=== PATIENT | female | born 1955 | race Caucasian/White ===

== ENCOUNTER → 2016-10-26 | Outpatient (CLI) | payer BC ==
[~2016-10-26] MED LIST: ASPI81TA28 PO; ATEN-173 PO; CHOLTAB3 PO; ESTR0.05 TD; RANI300T2 PO
[2016-10-26 13:50] LABS: BASO % 0.3 %; BASO ABS # 0.02 K/uL (0-0.2); COMPLETE YES; EOS % 0.8 %; HEMATOCRIT 40.9 % (37-47); IG% 0.2 %; LYMPH % 37.2 %; LYMPH ABS # 2.25 K/uL (1.2-3.4); MEAN CELL VOLUME 91.5 fL (80-100); MEAN CORPUSCULAR HEMOGLOBIN 30.4 pg (25-34); MEAN CORPUSCULAR HGB CONC 33.3 g/dl (32-36); MEAN PLATELET VOLUME 9.2 fL (7.4-10.4); MONO % 8.6 %; NEUT % 52.9 %; PLATELET COUNT 200 K/uL (130-400); RED BLOOD COUNT 4.47 M/uL (4.2-5.4); WHITE BLOOD COUNT 6.05 K/uL (4.8-10.8)
[2016-10-26 14:22] LABS: BLOOD UREA NITROGEN 10 mg/dl (7-18); BUN/CREATININE RATIO 14.4 (10-20); CARBON DIOXIDE 31 mmol/L (21-32); CHLORIDE 106 mmol/L (98-107); CREATININE 0.67 mg/dl (0.60-1.20); GLUCOSE 78 mg/dl (70-99); POTASSIUM 4.2 mmol/L (3.5-5.1); SODIUM 143 mmol/L (136-145)
== END | disposition home or self-care (01) ==
LOC: C.LABBC 11:09
PROVIDERS: ATTEND Family Medicine
DX: E55.9 Vitamin D deficiency, unspecified (principal); E53.9 Vitamin B deficiency, unspecified; K50.10 Crohn's disease of large intestine without complications; Z11.59 Encounter for screening for other viral diseases

== ENCOUNTER → 2016-11-08 | Outpatient (CLI) | payer BC ==
--- NOTE | 2016-11-09 12:25 | MAMMOGRAPHY REPORT ---
UNILATERAL LEFT DIGITAL DIAGNOSTIC MAMMOGRAM TOMOSYNTHESIS WITH CAD: 11/08/2016 CLINICAL HISTORY: Short interval follow-up diagnostic mammogram and possible ultrasound in the left breast for any facing asymmetry in the central breast. The patient is status post benign ultrasound -guided core biopsy in the left 9:00 breast and stereotactic biopsy of clustered microcalcifications in the upper outer quadrant of the right breast. The patient can feel a small dermal/subdermal 1 m m mass in the area of prior biopsy of the right breast, and reported it at this time. TECHNIQUE: Breast tomosynthesis in addition to standard 2D mammography was performed. Current study was also evaluated with a Computer Aided Detection (CAD) system. COMPARISON: Comparison is made to exams dated: 05/05/2016 ultrasound biopsy, 05/05/2016 mammogram, stereotactic biopsy, and 04/19/2016 mammogram - [facility]. BREAST COMPOSITION: The tissue of the left breast is heterogeneously dense, which may obscure small masses. FINDINGS: The asymmetry in the central left breast is no longer seen, confirming benignity. There i s a stable ribbon shaped metallic biopsy marker in the lower inner quadrant of the left breast denot ing the site of prior benign ultrasound-guided core biopsy. There are stable benign-appearing calci fications throughout the left breast. No new suspicious mass, focal area of architectural distortio n or new suspicious microcalcifications are seen. Focal targeted ultrasound was performed along a superficial 1 mm mass correlating to a slightly eryt hematous scar in the upper outer quadrant of the right breast which represents the incision from pre vious stereotactic biopsy. The patient pointed out this area during diagnostic workup and was wonde ring if it could represent the biopsy marker clip placed after stereotactic biopsy. Review of the postprocedure mammograms from 05/05/2016 demonstrates the biopsy marker clip to be loc ated at least 4.8 cm deep to the skin surface and it is doubtful that this represents the biopsy mar ker clip. No ultrasound images were saved but there is no evidence of a biopsy marker clip in the a montserrat of subdermal palpable concern. This area has the appearance of scar tissue in the dermis at the site of the skin incision. IMPRESSION: ACR BI-RADS CATEGORY 2: BENIGN The asymmetry in the central left breast is no longer identified. This confirms benignity. There is no mammographic evidence of malignancy within the left breast. Return to annual mammogram screening schedule is recommended. The patient has been verbally notified of the results. Approximately 10% of breast cancers are not detected with mammography. A negative mammographic repor t should not delay biopsy if a clinically suggestive mass is present. Rowan Merrill M.D. ay/:11/08/2016 14:54:11 Endband Cutter Hand: Chiqui GIRARD(Anders)([place]), [facility] letter sent: Normal 1/2 BI-RADS Code: ACR BI-RADS Category 2: Benign
== END | disposition home or self-care (01) ==
LOC: C.MAMM 14:08
PROVIDERS: ATTEND Obstetrics & Gynecology
DX: R92.2 Inconclusive mammogram (principal); N64.89 Other specified disorders of breast

== ENCOUNTER → 2017-05-09 | Outpatient (CLI) | payer BC ==
--- NOTE | 2017-05-11 07:55 | MAMMOGRAPHY REPORT ---
BILATERAL DIGITAL SCREENING MAMMOGRAM TOMOSYNTHESIS WITH CAD: 05/09/2017 CLINICAL HISTORY: Routine screening examination. TECHNIQUE: Breast tomosynthesis in addition to standard 2D mammography was performed. Current study was also evaluated with a Computer Aided Detection (CAD) system. COMPARISON: Comparison is made to exams dated: 11/08/2016 mammogram, 05/05/2016 ultrasound biopsy, 04/13 mammogram, 05/05/2016 stereotactic biopsy, and 04/12/2016 mammogram - [facility] BREAST COMPOSITION: The tissue of both breasts is heterogeneously dense, which may obscure small mas ses. FINDINGS: There are stable biopsy marker clips in each breast. Stable grouped benign-appearing micro calcifications in both breasts. No new suspicious mass, architectural distortion or cluster of micro calcifications is seen. IMPRESSION: ACR BI-RADS CATEGORY 1: NEGATIVE There is no mammographic evidence of malignancy. A 1 year screening mammogram is recommended. The pa tient will receive written notification of the results. Approximately 10% of breast cancers are not detected with mammography. A negative mammographic report should not delay biopsy if a clinically suggestive mass is present. Rowan Merrill M.D. ay/:05/10/2017 16:53:39 Block Layer: Chiqui GIRARD(Anders)([place]), [facility] letter sent: Normal 1/2 BI-RADS Code: ACR BI-RADS Category 1: Negative
== END | disposition home or self-care (01) ==
LOC: C.MAMM 09:50
PROVIDERS: ATTEND Obstetrics & Gynecology
DX: Z12.31 Encounter for screening mammogram for malignant neoplasm of breast (principal)

== ENCOUNTER → 2017-09-06 | Outpatient (CLI) | payer BC | END | disposition home or self-care (01) | LOC: C.LAB 11:04 | PROVIDERS: ATTEND Internal Medicine Cardiovascular Disease | DX: E78.5 Hyperlipidemia, unspecified (principal) ==

== ENCOUNTER → 2017-09-27 | Outpatient (CLI) | payer BC ==
[~2017-09-27] MED LIST changes: +REGADENOSON 0.4 MG/5 ML SYR ONE
--- NOTE | 2017-09-29 08:16 | MYOCARDIAL PERFUSION SCAN ---
REQUESTING PHYSICIAN: Chidi Sotelo MD. INDICATION: Chest pain. ONE-DAY NUCLEAR MEDICINE TECHNETIUM-99M CARDIOLITE MYOCARDIAL PERFUSION SCAN EKG: Baseline EKG shows normal sinus rhythm at a ventricular rate of 69 with a left bundle branch block. Stress EKG, heart rate rohan from 68-131 with Lexiscan representing 83% of maximum predicted heart rate. Blood pressure rohan from 139/69-159/68. There was some Lexiscan-induced chest pain. TECHNIQUE: For the stress portion of the study 30.3 mCi of technetium-99m Cardiolite IV was injected at 1309 on 09/27/2017. Thirty minutes following the injection, imaging of the heart was performed in multiple projections. For the rest portion of the study, 10.9 mCi of technetium-99m Cardiolite IV was injected at 11:35. One hour following the injection, imaging of the heart was performed in the same projections. FINDINGS: The rotating raw images were reviewed in detail. There was minimal gut/liver uptake impacting the inferior imaging border of the heart. There is no significant diaphragmatic attenuation or breast shadow. There was no significant extra cardiac pathologic uptake. The short axis, vertical long axis, horizontal long axis images were reviewed in detail. There was a small to moderate in severity fixed perfusion defect involving the apex and apical septum. The study most consistent with patient's baseline left bundle branch block. There was no significant reversibility. LV size was normal with an end-diastolic volume of 65. EF was calculated at 72%. There was some mild hypokinesis in the apical septum. IMPRESSION: 1. Negative myocardial perfusion scan for significant Lexiscan-induced ischemia. 2. Small fixed perfusion defect involving the apex, apical septum most consistent with left bundle branch block, much less likely would be distal infarct. 3. Normal left ventricle size with a calculated ejection fraction of 72% and mild apical septal hypokinesis most consistent with conduction abnormality. 4. Nondiagnostic Lexiscan EKG due to baseline left bundle branch block, inability to reach target heart rate.
== END | disposition home or self-care (01) ==
LOC: C.NUCL 11:08
PROVIDERS: ATTEND Internal Medicine Cardiovascular Disease
DX: R07.9 Chest pain, unspecified (principal)

== ENCOUNTER → 2017-10-26 | Outpatient (CLI) | payer BC ==
[~2017-10-26] MED LIST changes: -REGADENOSON 0.4 MG/5 ML SYR ONE
[2017-10-26 13:19] LABS: BASO % 0.1 %; BASO ABS # 0.01 K/uL (0-0.2); EOS % 0.9 %; EOS ABS # 0.06 K/uL (0-0.5); HEMATOCRIT 41.8 % (37-47); HEMOGLOBIN 14.3 g/dL (12.0-16.0); IG# 0.02 K/uL (0.00-0.02); LYMPH % 36.5 %; LYMPH ABS # 2.44 K/uL (1.2-3.4); MEAN CELL VOLUME 91.9 fL (80-100); MEAN CORPUSCULAR HEMOGLOBIN 31.4 pg (25-34); MEAN CORPUSCULAR HGB CONC 34.2 g/dl (32-36); MEAN PLATELET VOLUME 9.2 fL (7.4-10.4); MONO % 6.7 %; MONO ABS # 0.45 K/uL (0.11-0.59); NEUT % 55.5 %; PLATELET COUNT 193 K/uL (130-400); RED CELL DISTRIBUTION WIDTH CV 12.9 % (11.5-14.5); RED CELL DISTRIBUTION WIDTH SD 43.3 fL (36.4-46.3); WHITE BLOOD COUNT 6.68 K/uL (4.8-10.8)
[2017-10-26 13:35] LABS: BLOOD UREA NITROGEN 10 mg/dl (7-18); CALCIUM 8.7 mg/dl (8.5-10.1); CARBON DIOXIDE 28 mmol/L (21-32); CREATININE 0.71 mg/dl (0.60-1.20); GLUCOSE 83 mg/dl (70-99); POTASSIUM 3.9 mmol/L (3.5-5.1); SODIUM 138 mmol/L (136-145)
== END ==
LOC: C.LABBC 11:42
PROVIDERS: ATTEND Nurse Practitioner Adult Health
DX: E55.9 Vitamin D deficiency, unspecified (principal); E53.8 Deficiency of other specified B group vitamins; I10 Essential (primary) hypertension; K50.10 Crohn's disease of large intestine without complications

== ENCOUNTER → 2017-12-01 | Outpatient (CLI) | payer BC ==
--- NOTE | 2017-12-01 15:10 | MAMMOGRAPHY REPORT ---
UNILATERAL RIGHT DIGITAL DIAGNOSTIC MAMMOGRAM TOMOSYNTHESIS WITH CAD AND TARGETED RIGHT ULTRASOUND: CLINICAL HISTORY: The patient reports right lateral breast tenderness for approximately 6 weeks. She also had a scaly area on her right areola which crusted over and is now nearly completely resolved. She denies any palpable lumps or other complaints. TECHNIQUE: Breast tomosynthesis in addition to standard 2D mammography was performed. Current study was also evaluated with a Computer Aided Detection (CAD) system. Right CC and MLO 2D and tomosynthes is images were obtained. COMPARISON: Comparison is made to exams dated: 05/09/2017 mammogram, 11/08/2016 mammogram, 05/05/2016 u ltrasound biopsy, 05/05/2016 mammogram, 05/05/2016 stereotactic biopsy, and 04/19/2016 mammogram - [facility]. BREAST COMPOSITION: The tissue of the right breast is heterogeneously dense, which may obscure small masses. FINDINGS: A square marker butts the site of pointed out by the patient in the right upper outer quadr ant. There are no suspicious masses, calcifications, or areas of architectural distortion noted in t he right breast. There has been no significant interval change compared to prior exams. A biopsy cl ip is again noted within the right upper outer quadrant. Benign-appearing scattered right breast susan cifications are stable. Targeted ultrasound was performed of the area of pain pointed out by the patient, in the right 8 to 1 0:00 breast laterally. No suspicious masses or other suspicious sonographic abnormalities are eviden t. Incidentally noted during the exam were a few scattered small subcentimeter benign cysts. Target ed ultrasound was also performed of the site of the prior lesion on the right areola at approximately 9:00. No suspicious masses or other suspicious sonographic abnormalities are seen in this region on ultrasound. IMPRESSION: ACR BI-RADS CATEGORY 2: BENIGN, TARGETED ULTRASOUND ACR BI-RADS CATEGORY 2: BENIGN No suspicious mammographic or sonographic abnormality to explain right lateral breast pain. No suspi cious abnormality was seen at the site of the right areolar lesion which has nearly completely resolv ed clinically. There is no mammographic or targeted sonographic evidence of malignancy. Recommend c linical follow-up for right breast pain and for the areola lesion, and recommend routine bilateral sc reening mammograms which are due April 2018. The patient has been verbally notified of the results. Approximately 10% of breast cancers are not detected with mammography. A negative mammographic report should not delay biopsy if a clinically suggestive mass is present. Anette Avina M.D. ah/:12/01/2017 12:06:27 Housekeeper: Chiqui Kaiser [facility] letter sent: Normal 1/2 BI-RADS Code: ACR BI-RADS Category 2: Benign Ultrasound BI-RADS: ACR BI-RADS Category 2: Benign
== END | disposition home or self-care (01) ==
LOC: C.MAMM 10:21
PROVIDERS: ATTEND Nurse Practitioner Adult Health
DX: N64.4 Mastodynia (principal)

== ENCOUNTER 2024-07-21 06:56 | Inpatient (IN) ==
--- OUTSIDE RECORDS SUMMARY | 2024-07-21 07:01 | External Medical Summary | Summary of Care ---
Author Name Unknown Organization [facility] Address [address] [place] [address] Phone [phone] Care Team Providers Care Frankfurter Inspector Name Role Phone Luis M Lam DO Primary Care Provider [phone] Reason for Visit * Reason Onset Date Comments Appointment 07/16/2024 Encounter Details Date Type Department Care Team (Late st Contact Info) Description 07/16/2024 Telephone Rad[address] [address] Rohini Hancock, RT (R) Appointment Allergies Active Allergy Reactions Criticality Noted Date Comments Erythromycin 10/22/2021 Other reaction(s): GI Upset Morphine 10/22/2021 Other reaction(s): Vomiting documented as of this encounter (statuses as of 07/16/2024) Medications Medication Sig Dispensed Refills Start Date End Date Status Ezetimibe 10 MG Oral Tablet (Zetia) 10/15/2021 Activ e Atenolol 25 MG Oral Tablet (Tenormin) 08/16/2021 Active Vivelle-Dot 0.05 MG/24HR Transdermal Patch Twice Weekly APPLY 1 PATCH TRANSDERMALLY TWICE WEEKLY 09/29/2021 Active Vitamin D (Cholecalciferol) 10 MCG (400 UNIT) Oral Tablet Chewable Take by mouth 400 Units in the morning. Active Aspirin 81 MG Oral Tablet Delayed Release Take by mouth 81 mg in the morning. Active documented as of this encounter (statuses as of 07/16/2024) Social History Tobacco Use Types Packs/Day Years Used Date Smoking Tobacco: Never Smokeless Tobacco: Never Utilities Answer Date Recorded Do you have trouble paying y our heating, water, or electric bill? (Adult - for ages 18 years and over) Not on file 02/28/2024 Is your family able to pay t he heat, water, or electric bill? (Household - for ages 0-17 years) Not on file 02/28/2024 Does your family have access to good internet? (Household - for ages 0-17 years) Not on file 02/28/2024 Social Connections Answer Date Recorded How often do you feel lonely or isolated from those around you? (Adult - for ages 18 years and over) Not on file 02/28/2024 Sex and Gender Information Value Date Recorded Sex Assigned at Not on file Gender Identity Not on file Sexual Orientation Not on file Job Start Date Occupation Industry Not on file Not on file Not on file documented as of this encounter Miscellaneous Notes * Telephone Encounter - Rohini Hancock RT (R) - 07/16/2024 9:44 AM EST Name: Maryam Haro Do you have any of the following: Pacemaker, stents, heart valves, aneurysm clips? No Have you ever worked with metal or have you ever gotten metal in your eyes? No Have you had a colonoscopy in the last 30 days? No On dialysis? No Do you have any dermals or body piercing's? No or ? no Do you wear an insulin pump or diabetic monitor? no RT Jennifer (R) documented in this encounter Plan of Treatment Upcoming Encounters Date Type Department Care Team (Late st Contact Info) Description 07/20/2024 1:45 PM EST [address] [address] Health Maintenance Due Date Last Done Comments DXA Scan 1953 Lipid Panel 1953 Depression Screening 1965 Hepatitis C Screening 1971 DTap/Tdap Vaccines (1 - Tdap) 1972 Mammogram 1993 Cologuard 1998 Colonoscopy 1998 Colorectal Cancer Screening 1998 Fecal Occult Blood Test 1998 Sigmoidoscopy 1998 Zoster Vaccines (1 of 2) 2003 Pneumococcal Vaccine: 65+ Years (1 of 1 - PCV) 2018 COVID-19 Vaccine (4 - 2023-2 5 season) 2024 07/30/2021, 11/21/2020, 10/24/2020 Influenza Vaccine (FLU shot) (#1) 2024 HPV (Gardasil) Vaccine Aged Out No lo nger eligible based on patient's age to complete this topic Hepatitis B Vaccine Aged Out No longe r eligible based on patient's age to complete this topic MENINGOCOCCAL (MENACTRA/MENVEO) Aged Out No longer eligible b ased on patient's age to complete this topic documented as of this encounter Medical Devices Not on filedocumented as of this encounter Care Teams Frankfurter Inspector Relationship Specialty Start Date End Date uLis M Lam DO [address] [place] [address] PCP - General Family Medicine 09/13/21 documented as of this encounter
[2024-07-21] MEDS: SODIUM CHLORIDE 0.9% 1,000 ML IV ONE (07:24)
[2024-07-21] MEDS: ONDANSETRON INJ 2 MG/ML 2 ML VIAL IV STA (07:24)
[2024-07-21] MEDS: FAMOTIDINE 20MG IV PUSH 20 MG/5 ML SYR IV STA (07:25)
[2024-07-21 07:58] LABS: Basophils # (auto) 0.03 K/uL (0.00-0.20); Basophils % (auto) 0.2 %; Hematocrit (blood only) 44.5 % (37.0-47.0); Hemoglobin 14.9 g/dl (12.0-16.0); Immature Granulocytes # (auto) 0.04 K/uL (0.01-0.20); Immature Granulocytes % (auto) 0.3 %; Lymphocytes # (auto) 3.05 K/uL (1.20-3.40); Lymphocytes % (auto) 22.2 %; Mean Corpuscular Hemoglobin 30.9 pg (25.0-34.0); Mean Corpuscular Hgb Conc 33.5 g/dL (32.0-36.0); Mean Corpuscular Volume 92.3 fL (80.0-100.0); Mean Platelet Volume 8.7 fL (9.4-12.4); Monocytes # (auto) 0.66 K/uL (0.11-0.59); Monocytes % (auto) 4.8 %; Neutrophils # (auto) 9.95 K/uL (1.40-6.50); Neutrophils % (auto) 72.5 %; Platelet Count 200 K/uL (130-400); RDW Coefficient of Variation 13.7 % (11.5-14.5); RDW Standard Deviation 46.3 fL (36.4-46.3); Red Blood Count 4.82 M/uL (4.20-5.40); White Blood Count 13.73 K/ul (4.8-10.8)
--- NOTE | 2024-07-21 08:02 | XRay Report ---
XR chest 1V portable CLINICAL HISTORY: Chest pain, nonspecific COMPARISON STUDY: Chest radiograph September 02, 2023. FINDINGS: Lung volumes are at the lower limits of normal. Lungs are clear. There is no pneumothorax o r pleural effusion. Cardiac size is normal. Mediastinal contours are normal. There is pulmonary vascu lar congestion without overt pulmonary edema. IMPRESSION: 1. No consolidation to suggest pneumonia. 2. Pulmonary vascular congestion. ACT 112: Negative or not required by law. Electronically signed by: Jose Sun M.D. 07/21/2024 8:01 AM
--- NOTE | 2024-07-21 08:09 | Emergency Department Note ---
Impression & Plan Crohn's disease, Intractable nausea and vomiting, Abnormal computed tomography of abdomen and pelvis ED Provider Note NAME: ASIA CONNORS AGE: 69 SEX: F : 1955 ARRIVES VIA: Walk-In INFORMANT: Patient ED PROVIDER(S): Jose Barba MD CHIEF COMPLAINT: Abdominal pain, nausea, vomiting, diarrhea. PLAN: Disposition: Admit MEDICAL DECISION MAKING: The patient is a 69-year-old woman with past medical history of Crohn's disease, IBS, small bowel bacterial overgrowth, GERD, chronic constipation, hypertension, cardiomyopathy, hyperlipidemia, B12 deficiency, cervical radiculopathy who presents to the emergency department via walk-in for evaluation of persistent nausea, vomiting and diarrhea began yesterday in the setting of her report of having outpatient MRI of her abdomen with oral contrast yesterday. The patient attributes her symptoms possibly related to the oral contrast that she took as well as a salad and she later. She denies any fevers, chills, cough, congestion, urinary symptoms. Patient was seen in this emergency department on 06/15 for flare of her chronic symptoms of abdominal pain, bloating and nausea and had CT imaging that demonstrated calcified intraluminal contents with mucosal inflammation currently at the patient's ileocecal valve anastomosis which may reflect stenosis. Patient was treated with a prednisone taper at that time and had subsequent improvement in symptoms. She has since followed with her [facility] GI specialist and colorectal surgery follow-up was arranged and further management to be informed by the outpatient MRI the patient had yesterday. On evaluation the patient is fatigued appearing but no distress, afebrile with blood pressure 150s/80s and heart in the 90s and vital signs otherwise stable. She appears clinically dry. She has right-sided abdominal discomfort without discrete tenderness. No guarding or rebound. EKG demonstrates normal sinus rhythm with left bundle branch block, similar to prior, no Sgarbossa criteria. WBC 13.7 K with neutrophilia but no left shift, nonspecific. H/H and platelets within limits. ESR is within normal limits. CRP is marginally above upper limit of normal at 0.65. Chemistry without metabolic acidosis. Magnesium 1.6. LFTs unremarkable. High-sensitivity troponin 5.9, within normal limits. Lipase is not elevated. Stool studies were performed and were negative on BioFire PCR and C. difficile PCR. CT of the abdomen pelvis was performed and demonstrates similar but progressed findings compared to last month where the patient is status post ileocecectomy. Where marked mucosal thickening and moderate inflammatory changes centered on the neoterminal ileum has progressed. There is persistence of a calcified intraluminal contents and stable dilatation of the neoterminal ileum which favors progression of active inflammatory bowel disease with extensive inflammation. Mucosal edema and thickening suggests partial small bowel obstruction though the patient reports having moved her bowels. There is no abscess or extraluminal gas. Patient was treated with IV fluid hydration, IV famotidine, Zofran, IV APAP and had some initial improvement but then worsening again. Patient was given IV Solu-Medrol as well as Phenergan and dicyclomine however upon p.o. trial the patient was still unable to tolerate oral intake without feeling flare of pain, cramping and nausea. Given persistence of symptoms patient does agree with plan for admission for further management. Case was discussed with GI on-call, Dr. Breen. Appreciate consultation and recommendations. Agrees with admission to our facility if the patient cannot go home based on her clinical symptoms. The patient does have outpatient follow-up and progress with colorectal surgery however would not be a surgical candidate at this time given suspected active flare. Agrees with IV steroids. He will be available for inpatient team consultation. Case was discussed with Dr. Ramsey, [facility] [place] hospitalist, who will evaluate the patient for admission. Further management per admitting team. Triage Nursing notes reviewed and agree them. Prior/external medical records reviewed Vital Signs: reviewed Differential diagnosis: Gastroenteritis, food borne illness, infections, appendicitis, diverticulitis, inflammatory bowel disease, obstruction, GI bleed, biliary pathology, volvulus, as well as other pathologies. ER treatment provided: See below. Diagnostics interpreted by me: ECG: Normal sinus rhythm, 93 bpm, no ectopy, left bundle branch block, no Sgarbossa criteria, similar to prior. Cardiac Monitoring: An order for continuous cardiac monitoring was placed and demonstrated Normal sinus rhythm, 93 bpm, no ectopy. Laboratory studies: See below Imaging studies: See below Consultation(s): Dr. Breen, GI on-call Dr. Ramsey [facility] [place] hospitalist, HPI: The patient is a 69-year-old woman with past medical history of Crohn's disease, IBS, small bowel bacterial overgrowth, GERD, chronic constipation, hypertension, cardiomyopathy, hyperlipidemia, B12 deficiency, cervical radiculopathy who presents to the emergency department via walk-in for evaluation of persistent nausea, vomiting and diarrhea began yesterday in the setting of her report of having outpatient MRI of her abdomen with oral contrast yesterday. The patient attributes her symptoms possibly related to the oral contrast that she took as well as a salad and she later. She denies any fevers, chills, cough, congestion, urinary symptoms. Patient was seen in this emergency department on 06/15 for flare of her chronic symptoms of abdominal pain, bloating and nausea and had CT imaging that demonstrated calcified intraluminal contents with mucosal inflammation currently at the patient's ileocecal valve anastomosis which may reflect stenosis. Patient was treated with a prednisone taper at that time and had subsequent improvement in symptoms. She has since followed with her [facility] GI specialist and colorectal surgery follow-up was arranged and further management to be informed by the outpatient MRI the patient had yesterday. ROS: See above HPI for pertinent positives & negatives. A total of 10 systems reviewed and were otherwise negative. VITALS:See Below PHYSICAL EXAMINATION: GENERAL: Awake, alert, fatigued-appearing, in no distress HENT: Normocephalic, atraumatic. Oropharynx with dry mucous membranes and otherwise unremarkable. EYES: Normal conjunctiva. Sclera non-icteric. NECK: Supple. No nuchal rigidity. FROM. No JVD. RESPIRATORY: Clear to auscultation. CARDIAC: Regular rate, normal rhythm. Extremities warm and well perfused. Pulses equal. ABDOMEN: Soft, non-distended. Right-sided abdominal discomfort without discrete tenderness. There is no guarding or rebound. MUSCULOSKELETAL: Chest examination reveals no tenderness. The back is symmetrical on inspection without obvious abnormality. There is no CVA tenderness to palpation. No joint edema. LOWER EXTREMITIES: Calves are equal size bilaterally and non-tender. No edema. No discoloration. NEURO: Normal sensorium. No sensory or motor deficits noted. SKIN: No rash or jaundice noted. Jose Barba MD Past Med/Surg History Problem List (Updated 07/21/24 @ 19:41 by Jose Barba MD) Abnormal computed tomography of abdomen and pelvis (Acute) Intractable nausea and vomiting (Acute) Cervical disc disorder at C6-C7 level with radiculopathy HTN (hypertension) (Chronic) F/u Cardiology Cardiomyopathy Transient. Normal coronaries and normal LVEF on follow up (2010). Patent Foramen Ovale. Crohn's disease (Chronic) f/u by dr. Messer Hyperlipidemia (Chronic) B12 deficiency IBS (irritable bowel syndrome) Chronic constipation Esophageal reflux (Chronic) Vitamin D deficiency (Chronic) Unable to tolerate dose > 400U/day d/t headaches. Medical History Rectocele Vaginal prolapse 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 Left bundle branch block History of varicose veins History of cataract Surgical History Status post endovenous radiofrequency ablation of saphenous vein (~2014) to right lower extremity History of esophagogastroduodenoscopy (EGD) (03/07/19) No dysplasia. Recommend f/u 2021 (d/t h/o Crohn's) History of colonoscopy (03/07/19) No colitis. Recommend f/u 2021 (d/t h/o Crohn's). Hx of breast biopsy (05/05/16) Fibroadenoid changes without evidence of DCIS or invasic carcinoma. S/P cataract surgery History of cataract surgery (Unknown) History of wisdom tooth extraction History of carpal tunnel surgery s/p right carpal tunnel release 07/26/18 History of knee surgery Bilateral Meniscus repair. History of shoulder surgery (03/01/19) Arthroscopic right RTC repair History of laminectomy History of tonsillectomy and adenoidectomy History of hysterectomy with oophorectomy History of bowel resection Family History Mother Diabetes Father Coronary heart disease Myocardial infarction Brother Coronary heart disease Myocardial infarction Stroke Aunt Breast cancer Sister Stroke Other Cancer Denies family history of Ovarian cancer Prostate cancer Crohn's disease Lung cancer Colorectal cancer Ulcerative colitis Social History Smoking Status: Never smoker Second Hand Exposure: No; Do You Dip or Chew Tobacco: No; Tobacco Cessation Education Requested by Patient: No Hx Alcohol Use: No Hx Substance Use: No Preferred Language: [place] Island[place] Communication Ability: Effective Visual Impairment: Limited Hearing Ability: Normal Gun Tester Required: No Beliefs That Will Affect Care: None marital status: Life Partner Current Living Situation: Significant Other current occupational status: retired How many Children do You have: 3 Other Information That Helps Us Care for You: No Feels Safe at Home: Yes Safety Concerns: Feels Safe At This Time Childhood Exposure to Second-Hand Smoke: No caffeine: No (very seldom ) Dental Care, Regularly: Yes Physical Activity Frequency: 1-2 Times per Week Seatbelt Use: always Sunscreen Use: Yes Assistive Devices: Cane, Contacts and Glasses Allergies Allergies Allergy/AdvReac Type Severity Reaction Status Date / Time erythromycin base AdvReac Unknown ABDOMINAL Verified 07/10/24 13:12 DISCOMFORT morphine AdvReac Unknown VOMITING Verified 07/10/24 13:12 tramadol AdvReac Severe Vomiting Uncoded 07/10/24 13:12 Home Meds Home Medications Medication Instructions Recorded Confirmed cholecalciferol (vitamin D3) 10 400 units PO DAILY 04/23/19 07/21/24 mcg (400 unit) capsule aspirin 81 mg tablet,delayed 81 mg PO .COMPLEX 06/19/19 07/21/24 release (Adult Low Dose Aspirin) cyanocobalamin (vitamin B-12) 1,000 mcg PO DAILY 05/24/23 07/21/24 1,000 mcg capsule Previous Rx's Medication Instructions Recorded atenolol 25 mg tablet See Rx Instructions .Route 06/29/23 .COMPLEX #90 tabs Vivelle-Dot 0.05 mg/24 hr 1 patch transdermal 2XWK #24 07/10/24 transdermal patch (estradiol) patches ezetimibe 10 mg tablet (Zetia) 10 mg PO DAILY #90 tabs 07/16/24 Results & Data (ED) Vital Signs Vital Signs - 24 hr 07/21/24 07:00 07/21/24 07:24 07/21/24 07:28 Temperature 36.3 C L Temperature Source Skin Pulse Rate 98 H 98 H Pulse Rate [Apical] Respiratory Rate 20 14 Respiratory Effort / Characteristics Non-Labored Spontaneous Respiratory Depth Normal Respiratory Pattern Regular Blood Pressure 154/84 H Blood Pressure [Left Arm] Blood Pressure Mean 107 Blood Pressure Mean [Left Arm] Pulse Oximetry 96 93 Oxygen Delivery Method Room Air Room Air Sepsis Recent Fever Within 48 Hours No Sepsis New/Unexplained Change in Mental Status N/A Sepsis Action Taken by Nursing No Action Required 07/21/24 07:39 07/21/24 07:42 07/21/24 07:54 Temperature Temperature Source Pulse Rate 96 H 96 H 96 H Pulse Rate [Apical] Respiratory Rate 18 22 15 Respiratory Effort / Characteristics Respiratory Depth Respiratory Pattern Blood Pressure 134/77 Blood Pressure [Left Arm] Blood Pressure Mean 96 Blood Pressure Mean [Left Arm] Pulse Oximetry 95 97 95 Oxygen Delivery Method Sepsis Recent Fever Within 48 Hours Sepsis New/Unexplained Change in Mental Status Sepsis Action Taken by Nursing 07/21/24 08:12 07/21/24 08:15 07/21/24 08:24 Temperature Temperature Source Pulse Rate 100 H 101 H 96 H Pulse Rate [Apical] Respiratory Rate 17 13 Respiratory Effort / Characteristics Respiratory Depth Respiratory Pattern Blood Pressure Blood Pressure [Left Arm] Blood Pressure Mean Blood Pressure Mean [Left Arm] Pulse Oximetry 96 95 Oxygen Delivery Method Sepsis Recent Fever Within 48 Hours Sepsis New/Unexplained Change in Mental Status Sepsis Action Taken by Nursing 07/21/24 08:30 07/21/24 08:42 07/21/24 09:00 Temperature Temperature Source Pulse Rate 98 H 100 H 98 H Pulse Rate [Apical] Respiratory Rate 14 15 15 Respiratory Effort / Characteristics Respiratory Depth Respiratory Pattern Blood Pressure 151/90 H 133/75 Blood Pressure [Left Arm] Blood Pressure Mean 110 94 Blood Pressure Mean [Left Arm] Pulse Oximetry 95 93 94 Oxygen Delivery Method Sepsis Recent Fever Within 48 Hours Sepsis New/Unexplained Change in Mental Status Sepsis Action Taken by Nursing 07/21/24 09:27 07/21/24 10:03 07/21/24 10:15 Temperature Temperature Source Pulse Rate 99 H 99 H 98 H Pulse Rate [Apical] Respiratory Rate 29 H 19 14 Respiratory Effort / Characteristics Respiratory Depth Respiratory Pattern Blood Pressure Blood Pressure [Left Arm] Blood Pressure Mean Blood Pressure Mean [Left Arm] Pulse Oximetry 94 94 94 Oxygen Delivery Method Sepsis Recent Fever Within 48 Hours Sepsis New/Unexplained Change in Mental Status Sepsis Action Taken by Nursing 07/21/24 10:21 07/21/24 10:30 07/21/24 10:54 Temperature Temperature Source Pulse Rate 97 H 103 H 102 H Pulse Rate [Apical] Respiratory Rate 14 14 21 Respiratory Effort / Characteristics Respiratory Depth Respiratory Pattern Blood Pressure 126/64 Blood Pressure [Left Arm] Blood Pressure Mean 84 Blood Pressure Mean [Left Arm] Pulse Oximetry 94 96 94 Oxygen Delivery Method Sepsis Recent Fever Within 48 Hours Sepsis New/Unexplained Change in Mental Status Sepsis Action Taken by Nursing 07/21/24 11:00 07/21/24 11:21 07/21/24 11:30 Temperature Temperature Source Pulse Rate 99 H 95 H Pulse Rate [Apical] Respiratory Rate 20 21 Respiratory Effort / Characteristics Respiratory Depth Respiratory Pattern Blood Pressure Blood Pressure [Left Arm] 122/78 Blood Pressure Mean Blood Pressure Mean [Left Arm] 92 Pulse Oximetry 95 95 Oxygen Delivery Method Sepsis Recent Fever Within 48 Hours Sepsis New/Unexplained Change in Mental Status Sepsis Action Taken by Nursing 07/21/24 11:39 07/21/24 11:48 07/21/24 11:57 Temperature Temperature Source Pulse Rate 98 H 103 H 100 H Pulse Rate [Apical] Respiratory Rate 18 19 18 Respiratory Effort / Characteristics Respiratory Depth Respiratory Pattern Blood Pressure Blood Pressure [Left Arm] Blood Pressure Mean Blood Pressure Mean [Left Arm] Pulse Oximetry 95 94 95 Oxygen Delivery Method Sepsis Recent Fever Within 48 Hours Sepsis New/Unexplained Change in Mental Status Sepsis Action Taken by Nursing 07/21/24 12:12 07/21/24 12:21 07/21/24 12:51 Temperature Temperature Source Pulse Rate 98 H 93 H 97 H Pulse Rate [Apical] Respiratory Rate 15 19 19 Respiratory Effort / Characteristics Respiratory Depth Respiratory Pattern Blood Pressure Blood Pressure [Left Arm] Blood Pressure Mean Blood Pressure Mean [Left Arm] Pulse Oximetry 96 96 95 Oxygen Delivery Method Sepsis Recent Fever Within 48 Hours Sepsis New/Unexplained Change in Mental Status Sepsis Action Taken by Nursing 07/21/24 13:00 07/21/24 13:12 07/21/24 13:27 Temperature Temperature Source Pulse Rate 98 H 97 H 100 H Pulse Rate [Apical] Respiratory Rate 16 19 20 Respiratory Effort / Characteristics Respiratory Depth Respiratory Pattern Blood Pressure 100/72 Blood Pressure [Left Arm] Blood Pressure Mean 81 Blood Pressure Mean [Left Arm] Pulse Oximetry 96 94 94 Oxygen Delivery Method Sepsis Recent Fever Within 48 Hours Sepsis New/Unexplained Change in Mental Status Sepsis Action Taken by Nursing 07/21/24 13:33 07/21/24 13:42 07/21/24 14:37 Temperature Temperature Source Pulse Rate 105 H 106 H Pulse Rate [Apical] 109 H Respiratory Rate 21 18 17 Respiratory Effort / Characteristics Respiratory Depth Respiratory Pattern Blood Pressure 110/91 Blood Pressure [Left Arm] 155/85 H Blood Pressure Mean 97 Blood Pressure Mean [Left Arm] 108 Pulse Oximetry 96 94 97 Oxygen Delivery Method Room Air Sepsis Recent Fever Within 48 Hours Sepsis New/Unexplained Change in Mental Status Sepsis Action Taken by Nursing Laboratory Data Attestation: I reviewed the patient's lab results. 07/21/24 07:35 07/21/24 07:35 Lab Results 07/21/24 07/21/24 Range/Units 07:35 09:52 WBC 13.73 H (4.8-10.8) K/ul RBC 4.82 (4.20-5.40) M/uL Hgb 14.9 (12.0-16.0) g/dl Hct 44.5 (37.0-47.0) % MCV 92.3 (80.0-100.0) fL MCH 30.9 (25.0-34.0) pg MCHC 33.5 (32.0-36.0) g/dL RDW Std Deviation 46.3 (36.4-46.3) fL RDW Coeff of Edgardo 13.7 (11.5-14.5) % Plt Count 200 (130-400) K/uL MPV 8.7 L (9.4-12.4) fL Immature Gran % (Auto) 0.3 % Neut % (Auto) 72.5 % Lymph % (Auto) 22.2 % Clay % (Auto) 4.8 % Eos % (Auto) 0.0 % Baso % (Auto) 0.2 % Neut # (Auto) 9.95 H (1.40-6.50) K/uL Lymph # (Auto) 3.05 (1.20-3.40) K/uL Clay # (Auto) 0.66 H (0.11-0.59) K/uL Eos # (Auto) 0.00 (0.00-0.50) K/uL Baso # (Auto) 0.03 (0.00-0.20) K/uL Immature Gran # (Auto) 0.04 (0.01-0.20) K/uL ESR 14 (0-30) mm/hr PT 11.0 (9.0-12.0) Seconds INR 1.0 (0.9-1.1) Sodium 143 (136-145) mmol/L Potassium 3.6 (3.5-5.1) mmol/L Chloride 103 (98-107) mmol/L Carbon Dioxide 30 (21-32) mmol/L Anion Gap 10 (3-11) BUN 10 (6-23) mg/dl Creatinine 0.70 (0.6-1.2) mg/dl Est Cr Clr Drug Dosing 61.0 ml/min eGFR 92.41 BUN/Creatinine Ratio 14.3 (10-20) Glucose 166 H (70-99(Fasting)) mg/dl Calcium 9.4 (8.6-10.3) mg/dl Magnesium 1.6 L (1.7-2.4) mg/dl Total Bilirubin 0.9 (0.2-1.0) mg/dl Direct Bilirubin 0.2 (0-0.2) mg/dl AST 19 (13-39) U/L ALT 13 (7-52) U/L Alkaline Phosphatase 106 H (34-104) U/L Troponin I High Sens 5.9 (0-14) pg/ml C-Reactive Protein 0.65 H (0-0.5) mg/dl Total Protein 6.9 (6.0-8.3) gm/dl Albumin 4.0 (3.4-5.0) gm/dl Globulin 2.9 (2.5-4.0) gm/dl Albumin/Globulin Ratio 1.4 (0.9-2) Lipase 19 (11-82) U/L Stl C. cayetanensis PCR Not Detected (NotDetected) Stool Rotavirus A PCR Not Detected (NotDetected) Stl Adenov F 40/41 PCR Not Detected (NotDetected) Stool Astrovirus (PCR) Not Detected (NotDetected) Stool Campylobacter PCR Not Detected (NotDetected) Stl C. diff Tox B Gene Negative Cdiff Gene (Neg) Stool Cryptosporidium PCR Not Detected (NotDetected) Stl E.coli Shiga Tox PCR Not Detected (NotDetected) Stl Enterotoxigenic E PCR Not Detected (NotDetected) Stool EPEC (PCR) Not Detected (NotDetected) Stool EAEC (PCR) Not Detected (NotDetected) Stl E. histolytica PCR Not Detected (NotDetected) Stool Giardia Lamblia PCR Not Detected (NotDetected) Stool Salmonella PCR Not Detected (NotDetected) Stool Sapovirus (PCR) Not Detected (NotDetected) Stl P. shigelloides PCR Not Detected (NotDetected) Stl Shigella/EIEC PCR Not Detected (NotDetected) St Y.enterocolitica PCR Not Detected (NotDetected) Stool Vibrio (PCR) Not Detected (NotDetected) Stl Vibrio cholerae PCR Not Detected (NotDetected) Stl Norovirus GI/GII PCR Not Detected (NotDetected) Administered Medications Famotidine (Pepcid 20mg Iv Push) 20 mg in 5 mls @ 2.5 mls/min IV Q12 PARMINDER Stop: 08/20/24 17:29 Last Admin: 07/21/24 17:31 Dose: 2.5 mls/min Documented By: RRR Parenteral Electrolytes (Plasma-Lyte A Ph 7.4) 1,000 mls @ 125 mls/hr IV .Q8H ONE Stop: 07/22/24 00:59 Last Admin: 07/21/24 17:07 Dose: 125 mls/hr Documented By: RRR Potassium Chloride (K Davi / Wtr) 10 meq in 100 mls @ 100 mls/hr IV Q1H PARMINDER; Protocol Stop: 07/21/24 19:59 Last Admin: 07/21/24 19:29 Dose: 100 mls/hr Documented By: POLICE ARTIST Infusion: 07/21/24 19:23 Dose: Infused Documented By: POLICE ARTIST Admin: 07/21/24 18:23 Dose: 100 mls/hr Documented By: Infusion: 07/21/24 18:16 Dose: Infused Documented By: Admin: 07/21/24 17:16 Dose: 100 mls/hr Documented By: RRR Magnesium Sulfate/Dextrose (Magnesium Sulfate / D5w) 1 gm in 100 mls @ 50 mls/hr IV Q2H PARMINDER Stop: 07/21/24 22:59 Last Admin: 07/21/24 19:17 Dose: 50 mls/hr Documented By: Infusion: 07/21/24 19:12 Dose: Infused Documented By: Admin: 07/21/24 17:12 Dose: 50 mls/hr Documented By: RRR Discontinued Medications Dicyclomine HCl (Dicyclomine Hcl 10 Mg/Ml 2 Ml Amp/Vial) 20 mg IM NOW ONE Stop: 07/21/24 12:56 Last Admin: 07/21/24 13:09 Dose: 20 mg Documented By: ML Sodium Chloride (Nss) 1,000 mls @ 999 mls/hr IV .Q1H1M ONE Stop: 07/21/24 08:12 Last Infusion: 07/21/24 08:25 Dose: Infused Documented By: Admin: 07/21/24 07:24 Dose: 999 mls/hr Documented By: ML Famotidine (Pepcid 20mg Iv Push) 20 mg in 5 mls @ 2.5 mls/min IV NOW STA Stop: 07/21/24 07:13 Last Admin: 07/21/24 07:25 Dose: 2.5 mls/min Documented By: ML Acetaminophen (Ofirmev) 1,000 mg in 100 mls @ 400 mls/hr IV NOW STA Stop: 07/21/24 08:21 Last Infusion: 07/21/24 08:27 Dose: Infused Documented By: Admin: 07/21/24 08:12 Dose: 400 mls/hr Documented By: ML Promethazine HCl (Phenergan) 25 mg in 51 mls @ 204 mls/hr IV NOW STA Stop: 07/21/24 13:09 Last Infusion: 07/21/24 13:24 Dose: Infused Documented By: Admin: 07/21/24 13:09 Dose: 204 mls/hr Documented By: ML Ioversol (Optiray 320 100ml) 93 ml IV ONCE ONE Stop: 07/21/24 09:16 Last Admin: 07/21/24 09:15 Dose: 93 ml Documented By: NALINI Lorazepam (Lorazepam 2 Mg/1 Ml Vial) 0.5 mg IV NOW STA Stop: 07/21/24 14:24 Last Admin: 07/21/24 14:31 Dose: 0.5 mg Documented By: ML Methylprednisolone (Methylprednisolone 125 Mg/2 Ml Vial) 125 mg IV NOW STA Stop: 07/21/24 12:09 Last Admin: 07/21/24 12:20 Dose: 125 mg Documented By: ML Ondansetron HCl (Ondansetron Inj 2 Mg/Ml 2 Ml Vial) 4 mg IV NOW STA Stop: 07/21/24 07:13 Last Admin: 07/21/24 07:24 Dose: 4 mg Documented By: ML Ropinirole HCl (Ropinirole Hcl 0.25 Mg Tablet) 0.25 mg PO ONE ONE Stop: 07/21/24 16:01 Last Admin: 07/21/24 17:22 Dose: 0.25 mg Documented By: RRR Imaging Data Radiologist's Impression: Chest X-Ray 07/21/24 07:11 XR chest 1V portable CLINICAL HISTORY: Chest pain, nonspecific COMPARISON STUDY: Chest radiograph September 02, 2023. FINDINGS: Lung volumes are at the lower limits of normal. Lungs are clear. There is no pneumothorax or pleural effusion. Cardiac size is normal. Mediastinal contours are normal. There is pulmonary vascular congestion without overt pulmonary edema. IMPRESSION: 1. No consolidation to suggest pneumonia. 2. Pulmonary vascular congestion. ACT 112: Negative or not required by law. Electronically signed by: Jose Snu M.D. 07/21/2024 8:01 AM Abdomen/Pelvis CT 07/21/24 08:06 CT OF THE ABDOMEN AND PELVIS WITH CONTRAST CLINICAL HISTORY: Abdominal pain, nausea and vomiting. COMPARISON STUDY: CT of the abdomen and pelvis June 15, 2024. TECHNIQUE: Following IV administration of 93 mL of Optiray, axial images of the abdomen and pelvis were obtained from the lung bases to the proximal femurs. Images were reviewed in the axial, sagittal, and coronal planes. IV contrast was administered without complication. Automated exposure control was utilized for the study. A dose lowering technique was utilized adhering to the principles of ALARA. CT DOSE: 536.45 mGy.cm FINDINGS: Lung bases are unremarkable. No pneumatosis, free air or portal venous gas is present. The liver, spleen, adrenal glands, left kidney and pancreas are unremarkable. Low-attenuation small right renal lesion favors a cyst. There are gallstones within the gallbladder. There is no evidence for acute cholecystitis. There is no biliary or pancreatic ductal dilatation. Mild diffuse colorectal wall thickening is similar to CT of June 15, 2024. A few prominent perirectal lymph nodes are unchanged. There are postoperative findings consistent with ileocecectomy. Several mildly enlarged ileocolic lymph nodes measure up to 1.6 x 1.1 cm. These are similar to prior CT. Moderate inflammation adjacent to the ileocolonic anastomosis has progressed. Marked mucosal thickening of the neoterminal ileum has progressed. Partially calcified intraluminal contents are again noted within the neoterminal ileum. Mild dilatation of the neoterminal ileum is again noted. There is no extraluminal gas. There is no fluid collection. No additional sites of inflammation are present. IMPRESSION: 1. Status post ileocecectomy. Marked mucosal thickening with moderate inflammation centered on the neoterminal ileum which has progressed since prior CT. Persistent calcified intraluminal contents and stable dilatation of the neoterminal ileum. Given the clinical history, the findings favor progression of active inflammatory bowel disease with extensive inflammation. The mucosal edema/thickening appears to result in a partial small bowel obstruction. No abscess. No extraluminal gas. GI consultation is recommended. 2. No change in diffuse colorectal wall thickening. This may also reflect active inflammatory bowel disease. 3. Cholelithiasis. ACT 112: Negative or not required by law. Electronically signed by: Jose Sun M.D. 07/21/2024 9:45 AM Discharge Plan Visit Data Chief Complaint: Vomiting Stated Complaint: VOMITING ED Provider: Jose Barba Discharge Problem: Crohn's disease, Intractable nausea and vomiting, Abnormal computed tomography of abdomen and pelvis Patient Disposition: Admitted As Inpatient Discharge Instructions Interventions: ED Discharge Assessment Last Done: 07/21/24 16:12 Discharge Problem: Crohn's disease Qualifiers: Gastrointestinal tract location: unspecified location Digestive disease complication type: unspecified complication Qualified Code(s): K50.919 - Crohn's disease, unspecified, with unspecified complications
[2024-07-21 08:10] LABS: Albumin Globulin Ratio 1.4 (0.9-2); BUN Creatinine Ratio 14.3 (10-20); Bilirubin Direct 0.2 mg/dl (0-0.2); Bilirubin,Total 0.9 mg/dl (0.2-1.0); Calcium 9.4 mg/dl (8.6-10.3); Globulin 2.9 gm/dl (2.5-4.0); Magnesium 1.6 mg/dl (1.7-2.4); Potassium 3.6 mmol/L (3.5-5.1); Total Protein 6.9 gm/dl (6.0-8.3)
[2024-07-21] MEDS: ACETAMINOPHEN 1,000 MG/100 ML VIAL IV STA (08:12)
[2024-07-21 08:15] LABS: Troponin I High Sensitivity 5.9 pg/ml (0-14)
[2024-07-21] MEDS: OPTIRAY 320 100ml IV ONE (09:15)
--- NOTE | 2024-07-21 09:47 | CT Scan Report ---
CT OF THE ABDOMEN AND PELVIS WITH CONTRAST CLINICAL HISTORY: Abdominal pain, nausea and vomiting. COMPARISON STUDY: CT of the abdomen and pelvis June 15, 2024. TECHNIQUE: Following IV administration of 93 mL of Optiray, axial images of the abdomen and pelvis we re obtained from the lung bases to the proximal femurs. Images were reviewed in the axial, sagittal, and coronal planes. IV contrast was administered without complication. Automated exposure control wa s utilized for the study. A dose lowering technique was utilized adhering to the principles of ALARA . CT DOSE: 536.45 mGy.cm FINDINGS: Lung bases are unremarkable. No pneumatosis, free air or portal venous gas is present. The liver, spleen, adrenal glands, left kidney and pancreas are unremarkable. Low-attenuation small right renal lesion favors a cyst. There are gallstones within the gallbladder. There is no evidence for ac opal cholecystitis. There is no biliary or pancreatic ductal dilatation. Mild diffuse colorectal wall thickening is similar to CT of June 15, 2024. A few prominent perirectal lymph nodes are unchanged. There are postoperative findings consistent with ileocecectomy. Several mildly enlarged ileocolic ly mph nodes measure up to 1.6 x 1.1 cm. These are similar to prior CT. Moderate inflammation adjacent t o the ileocolonic anastomosis has progressed. Marked mucosal thickening of the neoterminal ileum has progressed. Partially calcified intraluminal contents are again noted within the neoterminal ileum. M ild dilatation of the neoterminal ileum is again noted. There is no extraluminal gas. There is no flu id collection. No additional sites of inflammation are present. IMPRESSION: 1. Status post ileocecectomy. Marked mucosal thickening with moderate inflammation centered on the ne oterminal ileum which has progressed since prior CT. Persistent calcified intraluminal contents and s table dilatation of the neoterminal ileum. Given the clinical history, the findings favor progression of active inflammatory bowel disease with extensive inflammation. The mucosal edema/thickening appea rs to result in a partial small bowel obstruction. No abscess. No extraluminal gas. GI consultation i s recommended. 2. No change in diffuse colorectal wall thickening. This may also reflect active inflammatory bowel d isease. 3. Cholelithiasis. ACT 112: Negative or not required by law. Electronically signed by: Jose Sun M.D. 07/21/2024 9:45 AM
[2024-07-21 11:12] LABS: C Reactive Protein 0.65 mg/dl (0-0.5)
[2024-07-21 11:31] LABS: Adenovirus F 40/41 PCR Not Detected (NotDetected); Astrovirus PCR Not Detected (NotDetected); Campylobacter PCR Not Detected (NotDetected); Cryptosporidium PCR Not Detected (NotDetected); Cyclospora cayetanensis PCR Not Detected (NotDetected); Entamoeba histolytica PCR Not Detected (NotDetected); Enteroaggregative E.coli(EAEC) Not Detected (NotDetected); Enteropathogenic E.coli (EPEC) Not Detected (NotDetected); Enterotoxigenic E.coli (ETEC) Not Detected (NotDetected); Giardia lamblia PCR Not Detected (NotDetected); Norovirus GI/GII PCR Not Detected (NotDetected); Plesiomonas shigelloides PCR Not Detected (NotDetected); Rotavirus A PCR Not Detected (NotDetected); Salmonella PCR Not Detected (NotDetected); Sapovirus PCR Not Detected (NotDetected); Shiga-like Toxin E.coli (STEC) Not Detected (NotDetected); Shigella/Enteroinvasive E.coli Not Detected (NotDetected); Vibrio cholerae PCR Not Detected (NotDetected); Vibrio species PCR Not Detected (NotDetected); Yersinia enterocolitica PCR Not Detected (NotDetected)
[2024-07-21] MEDS: methylPREDNISolone 125 MG/2 ML VIAL IV STA (12:20)
[2024-07-21] MEDS: PROMETHAZINE 25 MG/51 ML BAG IV STA (13:09)
[2024-07-21] MEDS: DICYCLOMINE HCL 10 MG/ML 2 ML AMP/VIAL IM ONE (13:09)
[2024-07-21] MEDS: LORazepam 2 MG/1 ML VIAL IV STA (14:31)
--- NOTE | 2024-07-21 14:40 | History & Physical Report ---
Date of Service July 21, 2024 Assessment & Plan (1) IBS (irritable bowel syndrome): Plan: in acute flare-up on admission; n/v/abd pain S/p ileocecectomy in 1999 with crohn's disease - leukocytosis (WBC 13.73), CRP 0.65, tachycardic - negative stool cultures - CT on admission showed marked mucosal thickening with moderate inflammation on neoterminal ileum, progressed since recent CT 1 month ago - Indicating active inflammatory bowel disease with extensive inflammation - last BM 07/20; no concerns for obstruction at this time - difficulty controlling nausea and vomiting with ED course: IV Pepcid, IV Zofran, IV acetaminophen, IV Solu-Medrol, IV Phenergan, IV Bentyl, IV Ativan - no concerns for acute surgical intervention at this time given no obstruction - With patient unable to tolerate p.o. intake, tachycardic, clinically dry with ongoing vomiting -> will give gentle fluid resuscitation overnight - ED physician spoke with Dr. Breen, GI; consulted - continue with conservative management - continue IV Zofran, IV Bentyl Q8 prn, IV Pepcid BID, IV acetaminophen - would not recommend IV Phenergan as can cause tissue damage; can consider other options if patient has persistent nausea and vomiting - IV Solu-Medrol 60 mg daily for 2 to 3 days, followed by p.o. taper of budesonide hypokalemia: 3.6 -> 30 meq IV hypomagnesia: 1.6 -> 3 gm IV restlessness - secondary to abd pain; requip given on admission (2) HTN (hypertension): Plan: mildly elevated - Unable to take home atenolol this morning given vomiting - patient continues to be unable to tolerate p.o. intake; will hold at this time - reassess in a.m. to resume (3) Crohn's disease: Plan Chronic stable diagnoses: Hyperlipidemia home aspirin and Zetia held on admission given unable to tolerate p.o. intake Hormone replacement therapy - replaces patches on Fridays VTE ppx: SCD Diet: clears if able to tolerate; can advance as tolerate when able to tolerate PO intake Code status: full code Dispo: med surg/ tele With patient unable to tolerate p.o. intake, home medications held. Please resume when patient able to tolerate p.o. intake. Admission and Anticipated Discharge Date Admission Date: 07/21/24 History of Present Illness Chief Complaint: vomiting Primary Care Provider: Luis M Lam DO Patient is a 69-year-old female with a past medical history of Crohn's, IBD, hypertension, cardiomyopathy, hyperlipidemia, B12 deficiency, s/p post ileocolonic resection. She presents today due to nausea vomiting and abdominal pain x 12 hours. She stated she has thrown up about 13 times over the past 12 hours. She has been unable to tolerate any p.o. intake. On exam she was trying to drink a Powerade and threw it up. she was seen in the ER about 1 month ago due to abdominal pain, in which CT was taken showing mild pancolitis, dilated bowel for possible stenotic anastomosis of ileocecal valve. She had a GI appointment recently in which she had her do a CT yesterday with IV and oral contrast; patient thought symptoms could related to contrast, although has had contrast in the past with no reaction. They referred her to colorectal surgery which she will follow-up with them. Patient endorses lightheadedness, abd pain. She stated that her nausea has improved on exam. She denies fever, chills, headache, dizziness, rhinorrhea, sore throat, cough, sputum production, dyspnea, dyspnea on exertion, chest pain, abdominal pain, nausea, vomiting, diarrhea, constipation, dysuria, hematuria, edema, numbness, tingling. She denies nicotine and alcohol use. She lives at home alone. She denies history of CA, VTE, DM. She does not use oxygen at baseline. She wishes to be full code at this time. She did not take her home medications this morning. The patient was discussed with Dr. Ramsey at the time of the admission/consult. Allergies Allergy/AdvReac Type Severity Reaction Status Date / Time erythromycin base AdvReac Unknown ABDOMINAL Verified 07/10/24 13:12 DISCOMFORT morphine AdvReac Unknown VOMITING Verified 07/10/24 13:12 tramadol AdvReac Severe Vomiting Uncoded 07/10/24 13:12 Home Medications Medication Instructions Recorded Confirmed Type cholecalciferol (vitamin D3) 10 400 units PO DAILY 04/23/19 07/21/24 History mcg (400 unit) capsule aspirin 81 mg tablet,delayed 81 mg PO .COMPLEX 10/08/19 11/09/24 History release (Adult Low Dose Aspirin) cyanocobalamin (vitamin B-12) 1,000 mcg PO DAILY 05/24/23 07/21/24 History 1,000 mcg capsule atenolol 25 mg tablet See Rx Instructions .Route 06/29/23 07/21/24 Rx .COMPLEX #90 tabs Vivelle-Dot 0.05 mg/24 hr 1 patch transdermal 2XWK #24 07/10/24 07/21/24 Rx transdermal patch (estradiol) patches ezetimibe 10 mg tablet (Zetia) 10 mg PO DAILY #90 tabs 07/16/24 07/21/24 Rx Past Med/Surg History Problem List Cervical disc disorder at C6-C7 level with radiculopathy HTN (hypertension) (Chronic) F/u Cardiology Cardiomyopathy Transient. Normal coronaries and normal LVEF on follow up (2010). Patent Foramen Ovale. Crohn's disease (Chronic) f/u by dr. Messer Hyperlipidemia (Chronic) B12 deficiency IBS (irritable bowel syndrome) Chronic constipation Esophageal reflux (Chronic) Vitamin D deficiency (Chronic) Unable to tolerate dose > 400U/day d/t headaches. Medical History Rectocele Vaginal prolapse 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 Left bundle branch block History of varicose veins History of cataract Surgical History Status post endovenous radiofrequency ablation of saphenous vein (~2014) to right lower extremity History of esophagogastroduodenoscopy (EGD) (03/07/19) No dysplasia. Recommend f/u 2021 (d/t h/o Crohn's) History of colonoscopy (03/07/19) No colitis. Recommend f/u 2021 (d/t h/o Crohn's). Hx of breast biopsy (05/05/16) Fibroadenoid changes without evidence of DCIS or invasic carcinoma. S/P cataract surgery History of cataract surgery (Unknown) History of wisdom tooth extraction History of carpal tunnel surgery s/p right carpal tunnel release 07/26/18 History of knee surgery Bilateral Meniscus repair. History of shoulder surgery (03/01/19) Arthroscopic right RTC repair History of laminectomy History of tonsillectomy and adenoidectomy History of hysterectomy with oophorectomy History of bowel resection Family History Mother Diabetes Father Coronary heart disease Myocardial infarction Brother Coronary heart disease Myocardial infarction Stroke Aunt Breast cancer Sister Stroke Other Cancer Denies family history of Ovarian cancer Prostate cancer Crohn's disease Lung cancer Colorectal cancer Ulcerative colitis Social History Smoking Status: Never smoker Second Hand Exposure: No; Do You Dip or Chew Tobacco: No; Hx Alcohol Use: Yes Alcohol type: beer and wine Alcohol Intake Frequency: Monthly or Less Alcohol Intake Frequency Comment: social gatherings Hx Substance Use: No Preferred Language: Sudanese Communication Ability: Effective Visual Impairment: Limited Hearing Ability: Normal Environmental Services Specialist Required: No marital status: Life Partner Current Living Situation: Significant Other current occupational status: retired How many Children do You have: 3 Feels Safe at Home: Yes Childhood Exposure to Second-Hand Smoke: No caffeine: No (very seldom ) Dental Care, Regularly: Yes Physical Activity Frequency: 1-2 Times per Week Seatbelt Use: always Sunscreen Use: Yes Review of Systems Review of Systems: see hpi Physical Exam Physical Exam: The patient is tired, alert and oriented 3, well developed and well nourished, normocephalic and atraumatic, in no acute distress. Non-toxic appearing. Restless. HEENT- EOMI, mucous membranes dry. Hearing grossly intact. Heart-normal S1 and S2. No murmurs, rubs or gallops. Lungs-clear bilaterally, no respiratory distress, no accessory muscle use. Abdomen-normal bowel sounds and soft, mildly distended. RUQ and RLL tenderness. Extremities- no clubbing, cyanosis, or edema. Rheumatologic-normal range of motion. Results & Data Results & Data Vital Signs (Past 12 Hours) Vital Signs Temp Pulse Pulse Resp BP BP Pulse Ox 07/21/24 14:37 109 H 17 155/85 H 97 07/21/24 13:42 106 H 18 94 07/21/24 13:33 105 H 21 110/91 96 07/21/24 13:27 100 H 20 94 07/21/24 13:12 97 H 19 94 07/21/24 13:00 98 H 16 100/72 96 07/21/24 12:51 97 H 19 95 07/21/24 12:21 93 H 19 96 07/21/24 12:12 98 H 15 96 07/21/24 11:57 100 H 18 95 07/21/24 11:48 103 H 19 94 07/21/24 11:39 98 H 18 95 07/21/24 11:30 122/78 07/21/24 11:21 95 H 21 95 07/21/24 11:00 99 H 20 95 07/21/24 10:54 102 H 21 94 07/21/24 10:30 103 H 14 126/64 96 07/21/24 10:21 97 H 14 94 07/21/24 10:15 98 H 14 94 07/21/24 10:03 99 H 19 94 07/21/24 09:27 99 H 29 H 94 07/21/24 09:00 98 H 15 133/75 94 07/21/24 08:42 100 H 15 151/90 H 93 07/21/24 08:30 98 H 14 95 07/21/24 08:24 96 H 13 95 07/21/24 08:15 101 H 17 96 07/21/24 08:12 100 H 07/21/24 07:54 96 H 15 95 07/21/24 07:42 96 H 22 97 07/21/24 07:39 96 H 18 134/77 95 07/21/24 07:28 93 07/21/24 07:24 98 H 14 07/21/24 07:00 36.3 C L 98 H 20 154/84 H 96 O2 Del Method 07/21/24 14:37 Room Air 07/21/24 13:42 07/21/24 13:33 07/21/24 13:27 07/21/24 13:12 07/21/24 13:00 07/21/24 12:51 07/21/24 12:21 07/21/24 12:12 07/21/24 11:57 07/21/24 11:48 07/21/24 11:39 07/21/24 11:30 07/21/24 11:21 07/21/24 11:00 07/21/24 10:54 07/21/24 10:30 07/21/24 10:21 07/21/24 10:15 07/21/24 10:03 07/21/24 09:27 07/21/24 09:00 07/21/24 08:42 07/21/24 08:30 07/21/24 08:24 07/21/24 08:15 07/21/24 08:12 07/21/24 07:54 07/21/24 07:42 07/21/24 07:39 07/21/24 07:28 Room Air 07/21/24 07:24 07/21/24 07:00 Room Air Code Status & VTE Plan Code Status full code VTE Prophylaxis Plan VTE Prophylaxis will be ordered: Yes Supervising Physician Co-Signing Physician Notes Patient seen and examined, chart reviewed, case discussed with Ksenia Alvarenga PA-C and I agree with the assessment and plan as above except as otherwise noted Labs and images reviewed 69-year-old female with past medical history of Crohn's disease, SIBO, cardiomyopathy, vitamin deficiency, radiculopathy presents with nausea/vomiting/diarrhea and he was found to have significant inflammation on CT suggestive of IBD flare. Patient also has known changes with calcified intraluminal contents and possible ileocecal valve anastomosis stenosis for which she is following with colorectal surgery as an outpatient. No discrete bowel obstruction is appreciated on admission. Given symptoms and diarrhea agree with treatment as IBD exacerbation. She has been given a methylprednisolone load while in the ER. Will continue with the prednisone until able to tolerate p.o. and then can likely transition to budesonide once improving. MRI enterogram remains pending in [facility]. Stool biofire negative. agree with above. PG Care Time/CCT Total # of Minutes Spent Total Time Spent with Patient: Total time spent is greater than 50% in coordination of care (as documented) at patient's floor/unit and/or counseling patient: Coding Level of Care Code 05362 INT INP/OBS CARE 2/55MIN Diagnoses IBS (irritable bowel syndrome) K58.9 HTN (hypertension) I10 Crohn's disease K50.90
[2024-07-21] MEDS ORDERED: DICYCLOMINE HCL 10 MG/ML 2 ML AMP/VIAL IM PRN (16:35)
[2024-07-21] MEDS ORDERED: ACETAMINOPHEN 1,000 MG/100 ML VIAL IV PRN (16:35)
[2024-07-21] MEDS: PLASMA-LYTE A 1,000 ML IV ONE (17:07)
[2024-07-21] MEDS: MAGNESIUM SULFATE / D5W 1 GM/100 ML BAG IV SCH (17:12)
[2024-07-21] MEDS: POTASSIUM CHLORIDE / WTR 10 MEQ/100 ML PLCT IV SCH (17:16)
[2024-07-21] MEDS: rOPINIRole HCL 0.25 MG TABLET PO ONE (17:22)
[2024-07-21] MEDS: FAMOTIDINE 20MG IV PUSH 20 MG/5 ML SYR IV SCH (17:31)
[2024-07-21] MEDS: ONDANSETRON INJ 2 MG/ML 2 ML VIAL IV PRN (19:56)
[2024-07-21] MEDS ORDERED: LORazepam 2 MG/1 ML VIAL IV PRN (20:27)
[2024-07-22 06:27] LABS: Hematocrit (blood only) 36.4 % (37.0-47.0); Hemoglobin 12.6 g/dl (12.0-16.0); Mean Corpuscular Hemoglobin 31.1 pg (25.0-34.0); Mean Corpuscular Hgb Conc 34.6 g/dL (32.0-36.0); Mean Corpuscular Volume 89.9 fL (80.0-100.0); Mean Platelet Volume 8.9 fL (9.4-12.4); Platelet Count 205 K/uL (130-400); RDW Coefficient of Variation 13.8 % (11.5-14.5); RDW Standard Deviation 45.6 fL (36.4-46.3); Red Blood Count 4.05 M/uL (4.20-5.40); White Blood Count 10.03 K/ul (4.8-10.8)
[2024-07-22 07:01] LABS: BUN Creatinine Ratio 13.8 (10-20); Calcium 8.2 mg/dl (8.6-10.3); Creatinine Clr Calc Pharmacy 65.7 ml/min; Magnesium 2.3 mg/dl (1.7-2.4); Potassium 3.8 mmol/L (3.5-5.1)
[2024-07-22] MEDS: methylPREDNISolone 80 MG in SYRINGE 0 ML IV SCH (08:09)
[2024-07-22] MEDS ORDERED: methylPREDNISolone 125 MG/2 ML VIAL IV SCH (09:00)
--- NOTE | 2024-07-22 09:39 | Gastrointestinal Consultation ---
Date of Consultation July 22, 2024 Assessment & Plan (1) Crohn's disease: Pleasant lady with a history of Crohn's disease who comes in with acute symptoms and CT that suggests active Crohn's. It is possible this is an acute infectious process brought on by her salad and timing would suggest that. Also an acute infectious enteritis could flare Crohn's. CT suggests active disease so I agree with initiation of steroids. If she improves on this--as she has--then when she goes home I would send her home on a six week taper of prednisone (30 mg daily for one week with 5 mg decrease each week until she is finished). She is somewhat insistent that this isn't active disease and that she doesn't need a predisone taper or can do a shorter one. I explained that a too short course could lead to a recurrence like happened with her last episode. I do think if she flares again repeat colonoscopy might be warranted. She is feeling much better today and could possibly go home tomorrow if doing well. History of Present Illness Reason for Consultation: crohn's disease Attending Physician: Alfredo Wade MD History of Present Illness 69 year old female with long history of Crohn's disease having had resection in 1999 for obstructive disease. She says she has been "fine" since her surgery and has not been on chronic meds since her surgery. She was seen in ER in early June and was felt to have active disease. She was sent out on prednisone for a ten day taper and she responded well. She has what appears to be a "stenotic" anastomosis and is scheduled to see Dr. Dickson with colon rectal surgery later this month. She had an MRI and then a few days ago ate a salad. She woke up in the middle of the night after eating the salad with abdominal pain and vomiting. This progressed and she finally went to the ED and was admitted. CT on admit shows probably active Crohn's. As I am seeing her she is feeling much better. She denies fever or chills. She denies feelings of malaise. She otherwise has felt well. Allergies Allergy/AdvReac Type Severity Reaction Status Date / Time erythromycin base AdvReac Unknown ABDOMINAL Verified 07/10/24 13:12 DISCOMFORT morphine AdvReac Unknown VOMITING Verified 07/10/24 13:12 tramadol AdvReac Severe Vomiting Uncoded 07/10/24 13:12 Home Medications Medication Instructions Recorded Confirmed Type cholecalciferol (vitamin D3) 10 400 units PO DAILY 04/23/19 07/21/24 History mcg (400 unit) capsule aspirin 81 mg tablet,delayed 81 mg PO .COMPLEX 06/19/19 07/21/24 History release (Adult Low Dose Aspirin) cyanocobalamin (vitamin B-12) 1,000 mcg PO DAILY 05/24/23 07/21/24 History 1,000 mcg capsule atenolol 25 mg tablet See Rx Instructions .Route 06/29/23 07/21/24 Rx .COMPLEX #90 tabs Vivelle-Dot 0.05 mg/24 hr 1 patch transdermal 2XWK #24 07/10/24 07/21/24 Rx transdermal patch (estradiol) patches ezetimibe 10 mg tablet (Zetia) 10 mg PO DAILY #90 tabs 07/16/24 07/21/24 Rx Patient History Medical History Rectocele Vaginal prolapse 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 Left bundle branch block History of varicose veins History of cataract Surgical History Status post endovenous radiofrequency ablation of saphenous vein (~2014) to right lower extremity History of esophagogastroduodenoscopy (EGD) (03/07/19) No dysplasia. Recommend f/u 2021 (d/t h/o Crohn's) History of colonoscopy (03/07/19) No colitis. Recommend f/u 2021 (d/t h/o Crohn's). Hx of breast biopsy (05/05/16) Fibroadenoid changes without evidence of DCIS or invasic carcinoma. S/P cataract surgery History of cataract surgery (Unknown) History of wisdom tooth extraction History of carpal tunnel surgery s/p right carpal tunnel release 07/26/18 History of knee surgery Bilateral Meniscus repair. History of shoulder surgery (03/01/19) Arthroscopic right RTC repair History of laminectomy History of tonsillectomy and adenoidectomy History of hysterectomy with oophorectomy History of bowel resection Family History Mother Diabetes Father Coronary heart disease Myocardial infarction Brother Coronary heart disease Myocardial infarction Stroke Aunt Breast cancer Sister Stroke Other Cancer Denies family history of Ovarian cancer Prostate cancer Crohn's disease Lung cancer Colorectal cancer Ulcerative colitis Social History Smoking Status: Never smoker Second Hand Exposure: No; Do You Dip or Chew Tobacco: No; Tobacco Cessation Education Requested by Patient: No Hx Alcohol Use: No Hx Substance Use: No Preferred Language: Slovenian Communication Ability: Effective Visual Impairment: Limited Hearing Ability: Normal 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 Beliefs That Will Affect Care: None marital status: Life Partner Current Living Situation: Significant Other current occupational status: retired How many Children do You have: 3 Other Information That Helps Us Care for You: No Feels Safe at Home: Yes Safety Concerns: Feels Safe At This Time Childhood Exposure to Second-Hand Smoke: No caffeine: No (very seldom ) Dental Care, Regularly: Yes Physical Activity Frequency: 1-2 Times per Week Seatbelt Use: always Sunscreen Use: Yes Assistive Devices: Cane, Contacts and Glasses Review of Systems Review of Systems: All systems reviewed & are unremarkable except as noted in HPI & below Physical Exam Constitutional: WD/WN, vitals as above Neck: trachea midline, no thyromegaly Respiratory: normal respiratory effort, lungs clear to auscultation Cardiovascular: RRR, no murmur, no edema Gastrointestinal (Abdomen): Inspection/Auscultation: abdomen normal to inspection Percussion/Palpation: + abdomen tender (right lower abdomen) and abdomen soft; no guarding and no hepatosplenomegaly Results & Data Vital Signs (Past 12 Hours) Vital Signs Temp Pulse Pulse Resp BP Pulse Ox O2 Del Method 07/22/24 07:29 37 C 89 17 123/71 96 Room Air 07/22/24 07:22 Room Air 07/22/24 07:05 92 H 07/22/24 01:51 36.9 C 104 H 14 148/74 H 94 Room Air 07/21/24 22:17 37.2 C 103 H 14 154/77 H 96 Room Air 07/21/24 21:44 112 H Laboratory Results 07/22/24 07/21/24 07/21/24 Range/Units 05:31 09:52 07:35 WBC 10.03 (4.8-10.8) K/ul RBC 4.05 L (4.20-5.40) M/uL Hgb 12.6 (12.0-16.0) g/dl Hct 36.4 L (37.0-47.0) % MCV 89.9 (80.0-100.0) fL MCH 31.1 (25.0-34.0) pg MCHC 34.6 (32.0-36.0) g/dL RDW Std Deviation 45.6 (36.4-46.3) fL RDW Coeff of Edgardo 13.8 (11.5-14.5) % Plt Count 205 (130-400) K/uL MPV 8.9 L (9.4-12.4) fL ESR 14 (0-30) mm/hr Sodium 138 (136-145) mmol/L Potassium 3.8 (3.5-5.1) mmol/L Chloride 104 (98-107) mmol/L Carbon Dioxide 28 (21-32) mmol/L Anion Gap 6 (3-11) BUN 9 (6-23) mg/dl Creatinine 0.65 (0.6-1.2) mg/dl Est Cr Clr Drug Dosing 65.7 ml/min eGFR 94.07 BUN/Creatinine Ratio 13.8 (10-20) Glucose 119 H (70-99(Fasting)) mg/dl Calcium 8.2 L (8.6-10.3) mg/dl Magnesium 2.3 (1.7-2.4) mg/dl C-Reactive Protein 0.65 H (0-0.5) mg/dl Stl C. cayetanensis PCR Not Detected (NotDetected) Stool Rotavirus A PCR Not Detected (NotDetected) Stl Adenov F 40/41 PCR Not Detected (NotDetected) Stool Astrovirus (PCR) Not Detected (NotDetected) Stool Campylobacter PCR Not Detected (NotDetected) Stl C. diff Tox B Gene Negative Cdiff Gene (Neg) Stool Cryptosporidium PCR Not Detected (NotDetected) Stl E.coli Shiga Tox PCR Not Detected (NotDetected) Stl Enterotoxigenic E PCR Not Detected (NotDetected) Stool EPEC (PCR) Not Detected (NotDetected) Stool EAEC (PCR) Not Detected (NotDetected) Stl E. histolytica PCR Not Detected (NotDetected) Stool Giardia Lamblia PCR Not Detected (NotDetected) Stool Salmonella PCR Not Detected (NotDetected) Stool Sapovirus (PCR) Not Detected (NotDetected) Stl P. shigelloides PCR Not Detected (NotDetected) Stl Shigella/EIEC PCR Not Detected (NotDetected) St Y.enterocolitica PCR Not Detected (NotDetected) Stool Vibrio (PCR) Not Detected (NotDetected) Stl Vibrio cholerae PCR Not Detected (NotDetected) Stl Norovirus GI/GII PCR Not Detected (NotDetected) Diagnostic Findings Chest X-Ray 07/21/24 07:11 XR chest 1V portable CLINICAL HISTORY: Chest pain, nonspecific COMPARISON STUDY: Chest radiograph September 02, 2023. FINDINGS: Lung volumes are at the lower limits of normal. Lungs are clear. There is no pneumothorax or pleural effusion. Cardiac size is normal. Mediastinal contours are normal. There is pulmonary vascular congestion without overt pulmonary edema. IMPRESSION: 1. No consolidation to suggest pneumonia. 2. Pulmonary vascular congestion. ACT 112: Negative or not required by law. Electronically signed by: Jose Sun M.D. 07/21/2024 8:01 AM Abdomen/Pelvis CT 07/21/24 08:06 CT OF THE ABDOMEN AND PELVIS WITH CONTRAST CLINICAL HISTORY: Abdominal pain, nausea and vomiting. COMPARISON STUDY: CT of the abdomen and pelvis June 15, 2024. TECHNIQUE: Following IV administration of 93 mL of Optiray, axial images of the abdomen and pelvis were obtained from the lung bases to the proximal femurs. Images were reviewed in the axial, sagittal, and coronal planes. IV contrast was administered without complication. Automated exposure control was utilized for the study. A dose lowering technique was utilized adhering to the principles of ALARA. CT DOSE: 536.45 mGy.cm FINDINGS: Lung bases are unremarkable. No pneumatosis, free air or portal venous gas is present. The liver, spleen, adrenal glands, left kidney and pancreas are unremarkable. Low-attenuation small right renal lesion favors a cyst. There are gallstones within the gallbladder. There is no evidence for acute cholecystitis. There is no biliary or pancreatic ductal dilatation. Mild diffuse colorectal wall thickening is similar to CT of June 15, 2024. A few prominent perirectal lymph nodes are unchanged. There are postoperative findings consistent with ileocecectomy. Several mildly enlarged ileocolic lymph nodes measure up to 1.6 x 1.1 cm. These are similar to prior CT. Moderate inflammation adjacent to the ileocolonic anastomosis has progressed. Marked mucosal thickening of the neoterminal ileum has progressed. Partially calcified intraluminal contents are again noted within the neoterminal ileum. Mild dilatation of the neoterminal ileum is again noted. There is no extraluminal gas. There is no fluid collection. No additional sites of inflammation are present. IMPRESSION: 1. Status post ileocecectomy. Marked mucosal thickening with moderate inflammation centered on the neoterminal ileum which has progressed since prior CT. Persistent calcified intraluminal contents and stable dilatation of the neoterminal ileum. Given the clinical history, the findings favor progression of active inflammatory bowel disease with extensive inflammation. The mucosal edema/thickening appears to result in a partial small bowel obstruction. No abscess. No extraluminal gas. GI consultation is recommended. 2. No change in diffuse colorectal wall thickening. This may also reflect active inflammatory bowel disease. 3. Cholelithiasis. ACT 112: Negative or not required by law. Electronically signed by: Jose Sun M.D. 07/21/2024 9:45 AM (1) Crohn's disease Digestive disease complication type: unspecified complication Gastrointestinal tract location: unspecified location Qualified Code(s): K50.919 - Crohn's disease, unspecified, with unspecified complications
--- NOTE | 2024-07-22 19:41 | Hospitalist Progress Note ---
Date of Service July 22, 2024 Assessment & Plan (1) Crohn's disease: Plan: with active exacerbation / active disease CT a/p with ileal inflammation & diffuse colonic inflammation no infectious process -- Stool BioFire negative; Stool C diff negative appreciate Dr Breen's consultation cont IV solumedrol 80mg daily cont IV zofran prn, pepcid, bentyl prn abd pain, etc improving with steroids defer Rx to Dr Breen clear liquid diet for now; defer advancement to Dr Breen check Fe studies am previous B12 level wnl check folic acid level am S/p ileocecectomy in [address] Andriy Messer no flare in many years (2) IBS (irritable bowel syndrome): Plan: Bentyl Q8 prn IV Pepcid BID (3) HTN (hypertension): Plan: can resume atenolol in am Plan Chronic diagnoses: Hyperlipidemia home aspirin and Zetia held on admission Hormone replacement therapy - replaces patches on Fridays Admission and Anticipated Discharge Date Admission Date: July 21, 2024 Subjective patient reports her abd pain has improved tolerating clears no nausea/vomiting she had had copious liquid stools at home - these have resolved no blood per rectum tele overnight wnl patient denies any ulcers of oral cavity, new joint pain, rashes Review of Systems 2 Review of Systems: gen - no fevers or chills cv - no chest pain pulm - no dyspnea Physical Exam Physical Exam: gen - NAD, pleasant mouth - MMM, no lesions neck - no JVD heart - RRR, s1 s2, no murmur lungs - CTA b/l abd - mildly distended, BS+, minimally tender right side of abdomen (junction RUQ/RLQ), no HSM, no peritoneal signs ext - no edema, pulses 2+ b/l psych - a/o x 3 Results & Data Results & Data Vital Signs (Past 12 Hours) Vital Signs Temp Pulse Pulse Resp BP Pulse Ox O2 Del Method 07/22/24 15:40 36.6 C 92 H 18 124/72 94 Room Air 07/22/24 14:20 103 H 07/22/24 11:19 36.7 C 88 18 125/71 94 Room Air Laboratory Results Laboratory Results 07/21/24 07/21/24 07/22/24 07:35 09:52 05:31 WBC 13.73 H 10.03 RBC 4.82 4.05 L Hgb 14.9 12.6 Hct 44.5 36.4 L MCV 92.3 89.9 MCH 30.9 31.1 MCHC 33.5 34.6 RDW Std Deviation 46.3 45.6 RDW Coeff of Edgardo 13.7 13.8 Plt Count 200 205 MPV 8.7 L 8.9 L Immature Gran % (Auto) 0.3 Neut % (Auto) 72.5 Lymph % (Auto) 22.2 Walker % (Auto) 4.8 Eos % (Auto) 0.0 Baso % (Auto) 0.2 Neut # (Auto) 9.95 H Lymph # (Auto) 3.05 Walker # (Auto) 0.66 H Eos # (Auto) 0.00 Baso # (Auto) 0.03 Immature Gran # (Auto) 0.04 ESR 14 PT 11.0 INR 1.0 Sodium 143 138 Potassium 3.6 3.8 Chloride 103 104 Carbon Dioxide 30 28 Anion Gap 10 6 BUN 10 9 Creatinine 0.70 0.65 Est Cr Clr Drug Dosing 61.0 65.7 eGFR 92.41 94.07 BUN/Creatinine Ratio 14.3 13.8 Glucose 166 H 119 H Calcium 9.4 8.2 L Magnesium 1.6 L 2.3 Total Bilirubin 0.9 Direct Bilirubin 0.2 AST 19 ALT 13 Alkaline Phosphatase 106 H Troponin I High Sens 5.9 C-Reactive Protein 0.65 H Total Protein 6.9 Albumin 4.0 Globulin 2.9 Albumin/Globulin Ratio 1.4 Lipase 19 Stl C. cayetanensis PCR Not Detected Stool Rotavirus A PCR Not Detected Stl Adenov F 40/41 PCR Not Detected Stool Astrovirus (PCR) Not Detected Stool Campylobacter PCR Not Detected Stl C. diff Tox B Gene Negative Cdiff Gene Stool Cryptosporidium PCR Not Detected Stl E.coli Shiga Tox PCR Not Detected Stl Enterotoxigenic E PCR Not Detected Stool EPEC (PCR) Not Detected Stool EAEC (PCR) Not Detected Stl E. histolytica PCR Not Detected Stool Giardia Lamblia PCR Not Detected Stool Salmonella PCR Not Detected Stool Sapovirus (PCR) Not Detected Stl P. shigelloides PCR Not Detected Stl Shigella/EIEC PCR Not Detected St Y.enterocolitica PCR Not Detected Stool Vibrio (PCR) Not Detected Stl Vibrio cholerae PCR Not Detected Stl Norovirus GI/GII PCR Not Detected Diagnostic Findings Chest X-Ray 07/21/24 07:11 XR chest 1V portable CLINICAL HISTORY: Chest pain, nonspecific COMPARISON STUDY: Chest radiograph September 02, 2023. FINDINGS: Lung volumes are at the lower limits of normal. Lungs are clear. There is no pneumothorax or pleural effusion. Cardiac size is normal. Mediastinal contours are normal. There is pulmonary vascular congestion without overt pulmonary edema. IMPRESSION: 1. No consolidation to suggest pneumonia. 2. Pulmonary vascular congestion. ACT 112: Negative or not required by law. Electronically signed by: Jose Sun M.D. 07/21/2024 8:01 AM Abdomen/Pelvis CT 07/21/24 08:06 CT OF THE ABDOMEN AND PELVIS WITH CONTRAST CLINICAL HISTORY: Abdominal pain, nausea and vomiting. COMPARISON STUDY: CT of the abdomen and pelvis June 15, 2024. TECHNIQUE: Following IV administration of 93 mL of Optiray, axial images of the abdomen and pelvis were obtained from the lung bases to the proximal femurs. Images were reviewed in the axial, sagittal, and coronal planes. IV contrast was administered without complication. Automated exposure control was utilized for the study. A dose lowering technique was utilized adhering to the principles of ALARA. CT DOSE: 536.45 mGy.cm FINDINGS: Lung bases are unremarkable. No pneumatosis, free air or portal venous gas is present. The liver, spleen, adrenal glands, left kidney and pancreas are unremarkable. Low-attenuation small right renal lesion favors a cyst. There are gallstones within the gallbladder. There is no evidence for acute cholecystitis. There is no biliary or pancreatic ductal dilatation. Mild diffuse colorectal wall thickening is similar to CT of June 15, 2024. A few prominent perirectal lymph nodes are unchanged. There are postoperative findings consistent with ileocecectomy. Several mildly enlarged ileocolic lymph nodes measure up to 1.6 x 1.1 cm. These are similar to prior CT. Moderate inflammation adjacent to the ileocolonic anastomosis has progressed. Marked mucosal thickening of the neoterminal ileum has progressed. Partially calcified intraluminal contents are again noted within the neoterminal ileum. Mild dilatation of the neoterminal ileum is again noted. There is no extraluminal gas. There is no fluid collection. No additional sites of inflammation are present. IMPRESSION: 1. Status post ileocecectomy. Marked mucosal thickening with moderate inflammation centered on the neoterminal ileum which has progressed since prior CT. Persistent calcified intraluminal contents and stable dilatation of the neoterminal ileum. Given the clinical history, the findings favor progression of active inflammatory bowel disease with extensive inflammation. The mucosal leola ma/thickening appears to result in a partial small bowel obstruction. No abscess. No extraluminal gas. GI consultation is recommended. 2. No change in diffuse colorectal wall thickening. This may also reflect active inflammatory bowel disease. 3. Cholelithiasis. ACT 112: Negative or not required by law. Electronically signed by: Jose Sun M.D. 07/21/2024 9:45 AM PG Care Time/CCT Total # of Minutes Spent Total Time Spent with Patient: Total time spent is greater than 50% in coordination of care (as documented) at patient's floor/unit and/or counseling patient: Coding Level of Care Code 60315 SUB INP/OBS CARE 10/06MIN Diagnoses Crohn's disease K50.919 Digestive disease complication type: unspecified complication Gastrointestinal tract location: unspecified location IBS (irritable bowel syndrome) K58.9 HTN (hypertension) I10 (1) Crohn's disease Digestive disease complication type: unspecified complication Gastrointestinal tract location: unspecified location Qualified Code(s): K50.919 - Crohn's disease, unspecified, with unspecified complications
[2024-07-23 06:53] LABS: Hematocrit (blood only) 36.8 % (37.0-47.0); Mean Corpuscular Hemoglobin 30.5 pg (25.0-34.0); Mean Corpuscular Hgb Conc 32.6 g/dL (32.0-36.0); Mean Corpuscular Volume 93.6 fL (80.0-100.0); Mean Platelet Volume 8.9 fL (9.4-12.4); Platelet Count 179 K/uL (130-400); RDW Coefficient of Variation 13.9 % (11.5-14.5); Red Blood Count 3.93 M/uL (4.20-5.40); White Blood Count 8.07 K/ul (4.8-10.8)
[2024-07-23 07:10] LABS: Potassium 3.8 mmol/L (3.5-5.1)
[2024-07-23 07:11] LABS: BUN Creatinine Ratio 18.2 (10-20); Calcium 8.5 mg/dl (8.6-10.3); Creatinine Clr Calc Pharmacy 64.7 ml/min
[2024-07-23 07:30] LABS: Ferritin 54.5 ng/ml (8-388)
[2024-07-23] MEDS: CHOLECALCIFEROL 10 MCG (400 UNITS) TAB PO SCH (08:34)
[2024-07-23] MEDS: EZETIMIBE 10 MG TAB PO SCH (08:34)
[2024-07-23] MEDS: CYANOCOBALAMIN (B-12) 500 MCG TABLET PO SCH (08:34)
[2024-07-23] MEDS: ATENOLOL 25 MG TABLET PO SCH (08:34)
--- NOTE | 2024-07-23 10:31 | Gastroenterology Progress Note ---
Date of Service July 23, 2024 Assessment & Plan (1) Crohn's disease: Plan: She is doing well. I will advance diet. If she tolerates she can go home on prednisone 30mg per day for a week then 25 per day for a week and so on tapering by 5 mg each week. Will follow up with Dr. Peters and Dr. Car Admission and Anticipated Discharge Date Admission Date: July 22, 2024 Subjective Feeling well. No pain. Passing gas. Scant BM's but not eating. Wants to go home Physical Exam Physical Exam: She looks well Constitutional: WD/WN, vitals as above Results & Data Vital Signs (Past 12 Hours) Vital Signs Temp Pulse Pulse Resp BP Pulse Ox O2 Del Method 07/23/24 08:05 36.5 C 67 19 148/73 H 97 Room Air 07/23/24 07:33 Room Air 07/23/24 06:55 74 07/23/24 03:57 36.6 C 74 18 143/86 H 95 Room Air 07/22/24 23:00 36.9 C 80 18 145/63 H 95 Room Air 07/22/24 22:57 83 (1) Crohn's disease Digestive disease complication type: unspecified complication Gastrointestinal tract location: unspecified location Qualified Code(s): K50.919 - Crohn's disease, unspecified, with unspecified complications
[2024-07-23 11:31] VITALS: RESP 16
[2024-07-23 14:51] VITALS: BP 136/68; TEMP 98.1; O2SAT 94
--- NOTE | 2024-07-23 15:14 | Electrocardiogram Report ---
Test Reason : Blood Pressure : */* mmHG Vent. Rate : 93 BPM Atrial Rate : 93 BPM P-R Int : 170 ms QRS Dur : 144 ms QT Int : 412 ms P-R-T Axes : 50 -20 107 degrees QTcB Int : 512 ms Normal sinus rhythm Left bundle branch block Abnormal ECG When compared with ECG of 02-Sep-2023 17:08, No significant change was found Confirmed by Ibrahima Camacho ([id number]) on 07/23/2024 3:13:33 PM Referred By: REFERRED SELF Confirmed By: Ibrahima Camacho
[2024-07-23 17:11] VITALS: PULSE 70
--- NOTE | 2024-07-23 17:23 | Discharge Summary ---
Discharge Summary Date of Service July 23, 2024 Principal Dx & Hospital Course #1 = Principal Diagnosis (1) Crohn's disease: with active exacerbation / active disease CT a/p with ileal inflammation & diffuse colonic inflammation no infectious process -- Stool BioFire negative; Stool C diff negative appreciate Dr Breen's consultation cont IV solumedrol 80mg daily cont IV zofran prn, pepcid, bentyl prn abd pain, etc improving with steroids defer Rx to Dr Breen clear liquid diet for now; defer advancement to Dr Breen check Fe studies am previous B12 level wnl check folic acid level am S/p ileocecectomy in [address] Andriy Messer no flare in many years (2) IBS (irritable bowel syndrome): Bentyl Q8 prn IV Pepcid BID (3) HTN (hypertension): can resume atenolol in am Plan Chronic diagnoses: Hyperlipidemia home aspirin and Zetia held on admission Hormone replacement therapy - replaces patches on Fridays Admission HPI Per Admitting Provider Patient is a 69-year-old female with a past medical history of Crohn's, IBD, hypertension, cardiomyopathy, hyperlipidemia, B12 deficiency, s/p post ileocolonic resection. She presents today due to nausea vomiting and abdominal pain x 12 hours. She stated she has thrown up about 13 times over the past 12 hours. She has been unable to tolerate any p.o. intake. On exam she was trying to drink a Powerade and threw it up. she was seen in the ER about 1 month ago due to abdominal pain, in which CT was taken showing mild pancolitis, dilated bowel for possible stenotic anastomosis of ileocecal valve. She had a GI appointment recently in which she had her do a CT yesterday with IV and oral contrast; patient thought symptoms could related to contrast, although has had contrast in the past with no reaction. They referred her to colorectal surgery which she will follow-up with them. Patient endorses lightheadedness, abd pain. She stated that her nausea has improved on exam. She denies fever, chills, headache, dizziness, rhinorrhea, sore throat, cough, sputum production, dyspnea, dyspnea on exertion, chest pain, abdominal pain, nausea, vomiting, diarrhea, constipation, dysuria, hematuria, edema, numbness, tingling. She denies nicotine and alcohol use. She lives at home alone. She denies history of CA, VTE, DM. She does not use oxygen at baseline. She wishes to be full code at this time. She did not take her home medications this morning. The patient was discussed with Dr. Ramsey at the time of the admission/consult. Discharge Exam gen - NAD, pleasant mouth - MMM, no lesions neck - no JVD heart - RRR, s1 s2, no murmur lungs - CTA b/l abd - mildly distended, BS+, minimally tender right side of abdomen (junction RUQ/RLQ), no HSM, no peritoneal signs ext - no edema, pulses 2+ b/l psych - a/o x 3 Discharge Plan Discharge Items Patient Disposition: Home - Self-Care Reason For Visit: [facility]OHN'S FLARE Discharge Diagnosis: Crohn's Disease Flare Activity: As commented below Activity Comment: gradually increase activity as tolerated Non-emergency contact: Primary Care Provider and Community Support Associate Call non-emergency contact if: you have any medication questions, your symptoms worsen, your pain is not controlled, your pain is worsening, your pain is unusual for you, your pain is concerning for you and you have a fever Follow-up/Referrals: Luis M Lam DO [Primary Care Provider] - 08/03/24 11:30 am Adiel Breen Jr, MD [Physician] - 07/27/24 10:20 am (APPT. W/ Tiffanie Galicia-Dr. Breen doesn't have any appointments open until next year.) Diet: Low Fiber Addtl Attending Provider Instructions: Ms Haro, You were hospitalized due to a Crohn's disease flare. Your CT scan shows inflammation of the last portion of the small intestine as well as the colon consistent with active Crohn's disease. Stool testing for c diff, e.coli, salmonella, various viruses, etc were negative. [facility] saw you in consult and recommended steroid therapy for the Crohn's. You improved with IV steroids. They are recommending a 6-week tapering course of oral prednisone upon discharge home. Recommendations - 1. Prednisone - start 07/24/24, take with food. * week #1 - take 30mg (5mg tab x 6) by mouth daily * week #2 - take 25mg (5mg tab x 5) by mouth daily * week #3 - take 20mg by mouth daily * week #4 - take 15mg by mouth daily * week #5 - take 10mg by mouth daily * week #6 - take 5mg by mouth daily 2. For nausea or vomiting - * ondansetron 4mg every 6 hours as needed 3. To help protect your stomach from the effects of prednisone take - * pepcid (famotidine) 20mg twice daily; start this tonight 4. Be sure to bring the CD with you to your appointments with [facility]. Follow-up - see separate section Return to [facility] if - * you have fever over 100 degrees * you have worsening abdominal pain * you have shortness of breath * you have persistent nausea and/or vomiting * you have blood in your stools * you have the inability to have a stool * any other concerns It was our pleasure to care for you! Pending Studies at Discharge: No Stand-Alone Forms: My [facility], Smoking Cessation Medications and DC Order Prescriptions: New prednisone 5 mg tablet 5 mg PO DIRECTED Qty: 150 0RF Rx Instructions: start 07/24/24, take with food. 30mg PO QD x 1 week; 25mg PO QD x 1 week; 20mg PO QD x 1 week; 15mg PO QD x 1 week; 10mg PO QD x 1 week; 5mg PO QD x 1 week. famotidine [Pepcid] 20 mg tablet 20 mg PO BID Qty: 60 2RF ondansetron 4 mg tablet,disintegrating 4 mg PO Q6H PRN (Reason: nausea and vomiting) Qty: 10 0RF Continued atenolol 25 mg tablet See Rx Instructions .ROUTE .COMPLEX Qty: 90 3RF Dose Instruction: TAKE 1 TABLET BY MOUTH EVERY DAY Rx Instructions: TAKE 1 TABLET BY MOUTH EVERY DAY ezetimibe [Zetia] 10 mg tablet 10 mg PO DAILY Qty: 90 3RF cyanocobalamin (vitamin B-12) 1,000 mcg capsule 1,000 mcg PO DAILY cholecalciferol (vitamin D3) 400 unit capsule 400 units PO DAILY aspirin [Adult Low Dose Aspirin] 81 mg tablet,delayed release (DR/EC) 81 mg PO .COMPLEX Patient Comments: 81 mg PO 2XWK ; tue/sat Rx Instructions: 81 mg PO 2XWK ; tue/sat estradiol [Vivelle-Dot] 0.05 mg/24 hr patch semiweekly 1 patch transdermal 2XWK Qty: 24 4RF Discharge Orders: Discharge Order (Routine); Ordered 07/23/24 Ordered By: Alfredo Wade Admission Data Admit Date/Time: 07/22/24 19:47 Attending Provider: Alfredo Wade Admit Provider: Alfredo Wade Primary Care Provider: Luis M Lam Other Providers: Jimi Ramsey; Adiel Breen Jr Other Interventions: Discharge Summary Assessment (RN) Last Done: 07/23/24 17:11 Hospital Stay Data Consultations 07/21/24 14:24 ED Decision to Admit Stat 07/21/24 16:35 Consult Gastroenterology Routine 07/23/24 16:33 Burn CD for patient Stat Diagnostic Imagining Performed 07/21/24 08:06 CT abd pelvis IV con only Stat Pending Results Patient Have Any Pending Studies at Discharge: No Discharge Instructions Given to Patient (Per Discharging Provider) Ms Haro, Kwadwo were hospitalized due to a Crohn's disease flare. Your CT scan shows inflammation of the last portion of the small intestine as well as the colon consistent with active Crohn's disease. Stool testing for c diff, e.coli, salmonella, various viruses, etc were negative. [facility] saw you in consult and recommended steroid therapy for the Crohn's. You improved with IV steroids. They are recommending a 6-week tapering course of oral prednisone upon discharge home. Recommendations - 1. Prednisone - start 07/24/24, take with food. * week #1 - take 30mg (5mg tab x 6) by mouth daily * week #2 - take 25mg (5mg tab x 5) by mouth daily * week #3 - take 20mg by mouth daily * week #4 - take 15mg by mouth daily * week #5 - take 10mg by mouth daily * week #6 - take 5mg by mouth daily 2. For nausea or vomiting - * ondansetron 4mg every 6 hours as needed 3. To help protect your stomach from the effects of prednisone take - * pepcid (famotidine) 20mg twice daily; start this tonight 4. Be sure to bring the CD with you to your appointments with [facility]. Follow-up - see separate section Return to [facility] if - * you have fever over 100 degrees * you have worsening abdominal pain * you have shortness of breath * you have persistent nausea and/or vomiting * you have blood in your stools * you have the inability to have a stool * any other concerns It was our pleasure to care for you! Coding Diagnoses Crohn's disease K50.919 Digestive disease complication type: unspecified complication Gastrointestinal tract location: unspecified location IBS (irritable bowel syndrome) K58.9 HTN (hypertension) I10
== END 2024-07-23 17:49 | disposition home or self-care (01) | DRG 392 ==
LOC: 2N 06:56 → ED 06:56 → SUATTDRO 15:11 → 2N 16:12